=== PATIENT | female | born 1995 | race Caucasian/White ===

== ENCOUNTER 2020-11-26 19:04 | Inpatient (IN) | payer BC, OTHER ==
[2020-11-26] MEDS ORDERED: ONDANSETRON 4 MG/2 ML VIAL IVP STA (20:05)
--- NOTE | 2020-11-26 20:12 | ED ---
Alcohol HPI - General Chief Complaint: Alcohol Stated Complaint: ETOH withdrawals Time Seen by Provider: 11/26/20 19:50 Source: patient, RN notes reviewed Mode of arrival: ambulatory Limitations: no limitations - History of Present Illness Initial Comments: 25-year-old female history of alcoholism was bent and out of rehab multiple times who states she's been drinking heavily for the past 2 and half months trachea is much is 1-1/2 fifths of whiskey per day. She states her last drink was about 3 hours to 4 prior to arrival. She is nauseated vomiting having shakes feels lightheaded dizzy she tries to walk. No diarrhea no other complaints such as abdominal pain she denies any chance being . And no other medical issues at this time MD Complaint: alcohol intoxication, alcohol withdrawal - Related Data Allergies Allergy/AdvReac Type Severity Reaction Status Date / Time No Known Allergies Allergy Verified 11/26/20 19:15 Review of Systems ROS Statement: Those systems with pertinent positive or pertinent negative responses have been documented in the HPI. ROS Other: All systems not noted in ROS Statement are negative. Past Medical History Past Medical History: No Reported History History of Any Multi-Drug Resistant Organisms: None Reported Past Surgical History: No Surgical Hx Reported Past Psychological History: No Psychological Hx Reported Smoking Status: Current every day smoker Past Alcohol Use History: Abuse, Daily, Heavy Past Drug Use History: None Reported General Exam - General Exam Comments Initial Comments: This is a well-developed well-nourished awake alert oriented 3 female demonstrate some evidence of tremor additionally there is a smell of alcohol conjoiners on her breath Limitations: no limitations General appearance: alert, anxious Head exam: Present: atraumatic, normocephalic, normal inspection Eye exam: Present: normal appearance, PERRL, EOMI. Absent: scleral icterus, conjunctival injection, periorbital swelling ENT exam: Present: mucous membranes dry Neck exam: Present: normal inspection. Absent: tenderness, meningismus, lymphadenopathy Respiratory exam: Present: normal lung sounds bilaterally. Absent: respiratory distress, wheezes, rales, rhonchi, stridor Cardiovascular Exam: Present: regular rate, normal rhythm, normal heart sounds. Absent: systolic murmur, diastolic murmur, rubs, gallop, clicks GI/Abdominal exam: Present: soft, normal bowel sounds. Absent: distended, tenderness, guarding, rebound, rigid Extremities exam: Present: normal inspection, full ROM, normal capillary refill. Absent: tenderness, pedal edema, joint swelling, calf tenderness Back exam: Present: normal inspection Neurological exam: Present: alert, oriented X3, CN II-XII intact Psychiatric exam: Present: normal mood, anxious Skin exam: Present: warm, dry, intact, normal color. Absent: rash Course Vital Signs 11/26/20 19:16 Temperature 99.1 F Pulse Rate 98 Respiratory 18 Rate Blood Pressure 158/93 O2 Sat by Pulse 96 Oximetry Medical Decision Making - Medical Decision Making I did review the lab work patient does demonstrate clinical evidence of intoxication as well as evidence of early withdrawal. Patient be admitted I did discuss the case with Dr Carrol izquierdo - Lab Data Result diagrams: 11/26/20 20:07 11/26/20 20:07 Lab Results 11/26/20 11/26/20 Range/Units 20:07 20:07 WBC 6.1 (3.8-10.6) k/uL RBC 4.30 (3.80-5.40) m/uL Hgb 14.9 (11.4-16.0) gm/dL Hct 45.0 (34.0-46.0) % MCV 104.5 H (80.0-100.0) fL MCH 34.6 (25.0-35.0) pg MCHC 33.1 (31.0-37.0) g/dL RDW 12.9 (11.5-15.5) % Plt Count 175 (150-450) k/uL MPV 8.2 Neutrophils % 60 % Lymphocytes % 29 % Monocytes % 5 % Eosinophils % 2 % Basophils % 1 % Neutrophils # 3.7 (1.3-7.7) k/uL Lymphocytes # 1.8 (1.0-4.8) k/uL Monocytes # 0.3 (0-1.0) k/uL Eosinophils # 0.1 (0-0.7) k/uL Basophils # 0.1 (0-0.2) k/uL Macrocytosis Slight Sodium 143 (137-145) mmol/L Potassium 4.0 (3.5-5.1) mmol/L Chloride 106 (98-107) mmol/L Carbon Dioxide 20 L (22-30) mmol/L Anion Gap 17 mmol/L BUN 12 (7-17) mg/dL Creatinine 0.50 L (0.52-1.04) mg/dL Est GFR (CKD-EPI)AfAm >90 (>60 ml/min/1.73 sqM) Est GFR (CKD-EPI)NonAf >90 (>60 ml/min/1.73 sqM) Glucose 135 H (74-99) mg/dL Calcium 9.9 (8.4-10.2) mg/dL Magnesium 2.1 (1.6-2.3) mg/dL Total Bilirubin 1.1 (0.2-1.3) mg/dL AST 175 H (14-36) U/L ALT 125 H (4-34) U/L Alkaline Phosphatase 84 (38-126) U/L Creatine Kinase 78 (30-135) U/L Total Protein 8.5 H (6.3-8.2) g/dL Albumin 5.1 H (3.5-5.0) g/dL Lipase 127 (23-300) U/L Serum Alcohol 380 H* mg/dL Disposition Clinical Impression: Alcohol withdrawal syndrome, Alcoholic intoxication Disposition: ADMITTED IP TO THIS HOSP Condition: Fair Referrals: None,Stated [Primary Care Provider] - 1-2 days
[2020-11-26 20:16] LABS: Basophils # (A) 0.1 k/uL (0-0.2); Basophils % (A) 1 %; Eosinophils # (A) 0.1 k/uL (0-0.7); Eosinophils % (A) 2 %; HGB 14.9 gm/dL (11.4-16.0); Lymphocytes # (A) 1.8 k/uL (1.0-4.8); Lymphocytes % (A) 29 %; MCH 34.6 pg (25.0-35.0); MCHC 33.1 g/dL (31.0-37.0); MCV 104.5 fL (80.0-100.0); Macrocytosis Slight; Mean Platelet Volume 8.2; Monocytes # (A) 0.3 k/uL (0-1.0); Monocytes % (A) 5 %; Neutrophils # (A) 3.7 k/uL (1.3-7.7); Neutrophils % (A) 60 %; Platelet Count 175 k/uL (150-450); RDW 12.9 % (11.5-15.5); WBC 6.1 k/uL (3.8-10.6)
[2020-11-26 20:28] LABS: ALT 125 U/L (4-34); AST 175 U/L (14-36); African American GFR (CKD) >90 (>60 ml/min/1.73 sqM); Albumin 5.1 g/dL (3.5-5.0); Alkaline Phosphatase 84 U/L (38-126); Anion Gap 17 mmol/L; Blood Urea Nitrogen 12 mg/dL (7-17); Calcium 9.9 mg/dL (8.4-10.2); Carbon Dioxide 20 mmol/L (22-30); Chloride 106 mmol/L (98-107); Creatine Kinase 78 U/L (30-135); Glucose 135 mg/dL (74-99); Lipase 127 U/L (23-300); Magnesium 2.1 mg/dL (1.6-2.3); Non-African American GFR(CKD) >90 (>60 ml/min/1.73 sqM); Sodium 143 mmol/L (137-145); Total Bilirubin 1.1 mg/dL (0.2-1.3); Total Protein 8.5 g/dL (6.3-8.2)
[2020-11-26 20:39] LABS: Alcohol 380 mg/dL
[2020-11-26] MEDS ORDERED: NALOXONE 0.4 MG/ML 1 ML VIAL IV PRN (20:58)
[2020-11-26] MEDS ORDERED: THIAMINE 100 MG/ML 2 ML VIAL IM STA (21:00)
[2020-11-26] MEDS ORDERED: LORazepam 2 MG/ML INJ IV PRN ×2 (21:00)
[2020-11-26] MEDS: THIAMINE 100 MG TAB PO SCH (21:12)
[2020-11-26] MEDS: SODIUM CHLORIDE 0.9% 1,000 ML IV SCH (21:13)
[2020-11-26] MEDS: 1: THIAMINE 100 MG, FOLIC ACID 1 MG in 0.9% NACL WITH KCL 20 MEQ/L 1,000 ML 2: 0.9% NAC IVP SCH (21:41)
[2020-11-26] MEDS: LORazepam 2 MG/ML INJ IV PRN (21:47)
--- NOTE | 2020-11-27 00:29 | P.HPIM ---
History of Present Illness H&P Date: 11/26/20 Patient is a 35-year-old female with a PMH of alcohol abuse who presents to the emergency room with alcohol intoxication, wanting to undergo detox. The patient reports a history of alcohol withdrawal seizures when she previously tried to detox on her own at home roughly a year ago. Patient reports that she has been drinking heavily for the past 2 years, and has now increased to a fifth to a fifth and a half of vodka daily for the past few months. She reports drinking small amounts throughout the day while she is at work and then drinking very heavily every night. She denied any additional complaints however. She denied chest discomfort, shortness of breath, fever, chills, cough, nausea, vomiting, abdominal pain, diarrhea. Laboratory evaluation was reviewed and was remarkable for alcohol level of 380, currently RCC are positive, AST 175, ALT 125, and lipase 127. Review of systems: Pertinent positives and negatives as discussed in HPI, a complete review of systems was performed and all other systems are negative. Physical examination: General: non toxic, no distress, appears at stated age, normal weight Derm: no unusual rashes/lesions no unusual ecchymoses, warm, dry Head: atraumatic, normocephalic, symmetric Eyes: EOMI, no lid lag, anicteric sclera, pupils equal round reactive to light ENT: Nose and ears atraumatic, no thrush, no pharyngeal erythema Neck: No thyromegaly, no cervical lymphadenopathy, trachea midline, supple Mouth: no lip lesion, mucus membranes moist Cardiovascular: S1S2 reg, no murmur, positive posterior tibial pulse bilateral, no edema, capillary refill less than 2 seconds Lungs: CTA bilateral, no rhonchi, no rales , no accessory muscle use Abdominal: soft, nontender to palpation, no guarding, no appreciable organomegaly, normal bowel sounds Ext: no gross muscle atrophy, muscle strength 5 out of 5 in all 4 extremities grossly, no contractures, Neuro: CN II-XI grossly intact, light touch intact all 4 extremities, finger to nose within normal limits, no outstretched hand tremor Psych: Alert, oriented, appropriate affect Assessment/plan Alcohol intoxication, impending withdrawal -[facility] protocol -Thiamine, folate -IV fluids -Fall, aspiration, seizure precautions Macrocytosis -Obtain B12 and folate levels Abnormal LFTs -Likely secondary to alcohol abuse -Monitor for now COVID-19 PCR positive -Patient currently asymptomatic DVT prophylaxis -Heparin subcu The patient is admitted with an anticipated greater than 2 midnight stay for evaluation of EtOh withdrawal CODE STATUS: Full Code Discussed with: Patient Anticipated discharge date: 2-[address]: Home Past Medical History Past Medical History: No Reported History History of Any Multi-Drug Resistant Organisms: None Reported Past Surgical History: No Surgical Hx Reported Past Psychological History: No Psychological Hx Reported Smoking Status: Current every day smoker Past Alcohol Use History: Abuse, Daily, Heavy Past Drug Use History: None Reported - Past Family History Mother Family Medical History: Hyperlipidemia Medications and Allergies Home Medications Medication Instructions Recorded Confirmed Type No Known Home Medications 11/26/20 11/26/20 History Allergies Allergy/AdvReac Type Severity Reaction Status Date / Time No Known Allergies Allergy Verified 11/26/20 21:48 Physical Exam Vitals: Vital Signs Temp Pulse Resp BP Pulse Ox 11/26/20 22:58 76 18 127/87 95 11/26/20 21:00 67 18 159/99 95 11/26/20 19:16 99.1 F 98 18 158/93 96 Intake and Output 11/26/20 11/26/20 11/27/20 14:59 22:59 06:59 Other: Weight 63.503 kg Results CBC & Chem 7: 11/26/20 20:07 11/26/20 20:07 Labs: Abnormal Lab Results - Last 24 Hours (Table) 11/26/20 11/26/20 11/26/20 Range/Units 20:07 20:07 21:19 MCV 104.5 H (80.0-100.0) fL Carbon Dioxide 20 L (22-30) mmol/L Creatinine 0.50 L (0.52-1.04) mg/dL Glucose 135 H (74-99) mg/dL AST 175 H (14-36) U/L ALT 125 H (4-34) U/L Total Protein 8.5 H (6.3-8.2) g/dL Albumin 5.1 H (3.5-5.0) g/dL Serum Alcohol 380 H* mg/dL Coronavirus (PCR) Detected A (Not Detectd)
[2020-11-27] MEDS: LORazepam 2 MG/ML INJ IV PRN ×3 (01:46→16:25)
[2020-11-27] MEDS: THIAMINE 100 MG TAB PO SCH ×2 (09:14→17:11)
[2020-11-27] MEDS: FOLIC ACID 1 MG TAB PO SCH (09:14)
[2020-11-27] MEDS: HEPARIN SODIUM,PORCINE/PF 5,000 UNIT/0.5 ML SYRINGE SQ SCH ×3 (09:14→23:53)
[2020-11-27] MEDS: SODIUM CHLORIDE 0.9% 1,000 ML IV SCH (09:16)
[2020-11-27 13:16] LABS: African American GFR (CKD) 146.8 (60.0-200.0); Albumin 4.4 g/dL (3.8-4.9); Albumin/Globulin Ratio 1.83 (1.60-3.17); Anion Gap 15.8 mmol/L (4.00-12.00); BUN/Creat Ratio 20.17 Ratio (12.00-20.00); Blood Urea Nitrogen 12.1 mg/dL (9.0-27.0); Calcium 8.8 mg/dL (8.7-10.3); Carbon Dioxide 18.2 mmol/L (21.6-31.8); Globulin 2.4 g/dL (1.6-3.3); Non-African American GFR(CKD) 126.7 (60.0-200.0); Potassium 4.4 mmol/L (3.5-5.5); Total Bilirubin 1.4 mg/dL (0.30-1.20); Total Protein 6.8 g/dL (6.2-8.2)
--- NOTE | 2020-11-27 13:59 | P.PN ---
Subjective Patient is doing well today. No acute events overnight. Objective - Vital Signs Vital signs: Vital Signs Temp 98.0 F 11/27/20 07:00 Pulse 88 11/27/20 07:00 Resp 17 11/27/20 07:00 BP 144/66 11/27/20 07:00 Pulse Ox 95 11/27/20 07:00 Intake & Output 11/26/20 11/27/20 11/27/20 18:59 06:59 18:59 Weight 63.503 kg Other: # Voids 1 - Exam General: The patient is awake and alert, in no distress Eye: there is normal conjunctiva bilaterally. Neck: The neck is supple, there is no JVD. Cardiovascular: Normal S1-S2, no S3-S4, no murmurs. Respiratory: Lungs clear to auscultation bilaterally Gastrointestinal: Abdomen is soft, nontender Musculoskeletal: There is no pedal edema. Neurological:. Speech is normal. Skin: Skin is warm and dry - Labs CBC & Chem 7: 11/26/20 20:07 11/27/20 06:48 Labs: Abnormal Lab Results - Last 24 Hours (Table) 11/26/20 11/26/20 11/26/20 Range/Units 20:07 20:07 21:19 MCV 104.5 H (80.0-100.0) fL Carbon Dioxide 20 L (22-30) mmol/L Anion Gap (4.00-12.00) mmol/L Creatinine 0.50 L (0.52-1.04) mg/dL BUN/Creatinine Ratio (12.00-20.00) Ratio Glucose 135 H (74-99) mg/dL Total Bilirubin (0.30-1.20) mg/dL AST 175 H (14-36) U/L ALT 125 H (4-34) U/L Total Protein 8.5 H (6.3-8.2) g/dL Albumin 5.1 H (3.5-5.0) g/dL Serum Alcohol 380 H* mg/dL Coronavirus (PCR) Detected A (Not Detectd) 11/27/20 Range/Units 06:48 MCV (80.0-100.0) fL Carbon Dioxide 18.2 L (22-30) mmol/L Anion Gap 15.80 H (4.00-12.00) mmol/L Creatinine (0.52-1.04) mg/dL BUN/Creatinine Ratio 20.17 H (12.00-20.00) Ratio Glucose (74-99) mg/dL Total Bilirubin 1.40 H (0.30-1.20) mg/dL AST 126 H (14-36) U/L ALT 107 H (4-34) U/L Total Protein (6.3-8.2) g/dL Albumin (3.5-5.0) g/dL Serum Alcohol mg/dL Coronavirus (PCR) (Not Detectd) Assessment and Plan Assessment: Patient is a 35-year-old female with a PMH of alcohol abuse who presents to the emergency room with alcohol intoxication, wanting to undergo detox. The patient reports a history of alcohol withdrawal seizures when she previously tried to detox on her own at home roughly a year ago. Patient reports that she has been drinking heavily for the past 2 years, and has now increased to a fifth to a fifth and a half of vodka daily for the past few months. She reports drinking small amounts throughout the day while she is at work and then drinking very heavily every night. She denied any additional complaints however. She denied chest discomfort, shortness of breath, fever, chills, cough, nausea, vomiting, abdominal pain, diarrhea. Laboratory evaluation was reviewed and was remarkable for alcohol level of 380, currently RCC are positive, AST 175, ALT 125, and lipase 127. Psych: Alert, oriented, appropriate affect Assessment/plan Alcohol intoxication, impending withdrawal -[facility] protocol -Thiamine, folate -IV fluids -Fall, aspiration, seizure precautions Macrocytosis -Obtain B12 and folate levels Abnormal LFTs -Likely secondary to alcohol abuse -Monitor for now COVID-19 PCR positive -Patient currently asymptomatic DVT prophylaxis -Heparin subcu The patient is admitted with an anticipated greater than 2 midnight stay for evaluation of EtOh withdrawal CODE STATUS: Full Code Discussed with: Patient Anticipated discharge date: 2-[address]: Home
[2020-11-27] MEDS: 1: THIAMINE 100 MG, FOLIC ACID 1 MG in 0.9% NACL WITH KCL 20 MEQ/L 1,000 ML 2: 0.9% NAC IVP SCH ×2 (15:46→17:58)
[2020-11-27] MEDS: NICOTINE 21MG/24HR PATCH TRANSDERM SCH (17:11)
[2020-11-28] MEDS ORDERED: ACETAMINOPHEN TAB 325 MG TAB PO PRN (03:22)
[2020-11-28] MEDS: LORazepam 2 MG/ML INJ IV PRN ×2 (03:35→21:52)
[2020-11-28] MEDS: 1: THIAMINE 100 MG, FOLIC ACID 1 MG in 0.9% NACL WITH KCL 20 MEQ/L 1,000 ML 2: 0.9% NAC IVP SCH ×3 (04:35→17:19)
[2020-11-28] MEDS ORDERED: amLODIPine 5 MG TAB PO SCH (09:00)
[2020-11-28] MEDS: NICOTINE 21MG/24HR PATCH TRANSDERM SCH (10:04)
[2020-11-28] MEDS: THIAMINE 100 MG TAB PO SCH ×2 (10:04→17:20)
[2020-11-28] MEDS: HEPARIN SODIUM,PORCINE/PF 5,000 UNIT/0.5 ML SYRINGE SQ SCH ×2 (10:04→17:20)
[2020-11-28] MEDS: FOLIC ACID 1 MG TAB PO SCH (10:06)
[2020-11-28] MEDS ORDERED: hydrALAZINE HCL 20 MG/ML 1 ML VIAL IVP STA (10:54)
--- NOTE | 2020-11-28 10:55 | P.PN ---
Subjective Patient is feeling fairly well today. Her blood pressure is very elevated this morning. Patient told me that she has a history of hypertension that has not been taking any medications Objective - Vital Signs Vital signs: Vital Signs Temp 98.7 F 11/28/20 10:15 Pulse 94 11/28/20 10:15 Resp 16 11/28/20 10:15 BP 190/124 11/28/20 10:15 Pulse Ox 99 11/28/20 10:15 Intake & Output 11/27/20 11/28/20 11/28/20 18:59 06:59 18:59 Intake Total 1200 Balance 1200 Intake: Intake, IV Titration 1200 Amount Sodium Chloride 0.9% 1, 1200 000 ml @ 75 mls/hr IV . [id number] ALICIA Rx#:[id number] Other: # Voids 3 3 - Exam General: The patient is awake and alert, in no distress Eye: there is normal conjunctiva bilaterally. Neck: The neck is supple, there is no JVD. Cardiovascular: Normal S1-S2, no S3-S4, no murmurs. Respiratory: Lungs clear to auscultation bilaterally Gastrointestinal: Abdomen is soft, nontender Musculoskeletal: There is no pedal edema. Neurological:. Speech is normal. Skin: Skin is warm and dry - Labs CBC & Chem 7: 11/26/20 20:07 11/27/20 06:48 Labs: Abnormal Lab Results - Last 24 Hours (Table) 11/27/20 Range/Units 06:48 Carbon Dioxide 18.2 L (21.6-31.8) mmol/L Anion Gap 15.80 H (4.00-12.00) mmol/L BUN/Creatinine Ratio 20.17 H (12.00-20.00) Ratio Total Bilirubin 1.40 H (0.30-1.20) mg/dL AST 126 H (13-35) U/L ALT 107 H (8-44) U/L Assessment and Plan Assessment: Patient is a 35-year-old female with a PMH of alcohol abuse who presents to the emergency room with alcohol intoxication, wanting to undergo detox. The patient reports a history of alcohol withdrawal seizures when she previously tried to detox on her own at home roughly a year ago. Patient reports that she has been drinking heavily for the past 2 years, and has now increased to a fifth to a fifth and a half of vodka daily for the past few months. She reports drinking small amounts throughout the day while she is at work and then drinking very heavily every night. She denied any additional complaints however. She denied chest discomfort, shortness of breath, fever, chills, cough, nausea, vomiting, abdominal pain, diarrhea. Laboratory evaluation was reviewed and was remarkable for alcohol level of 380, currently RCC are positive, AST 175, ALT 125, and lipase 127. Psych: Alert, oriented, appropriate affect Assessment/plan Alcohol intoxication, impending withdrawal -[facility] protocol -Thiamine, folate -IV fluids -Fall, aspiration, seizure precautions Hypertensive urgency This likely secondary to withdrawal as patient is not having any symptoms of withdrawal and got Ativan earlier with minimal improvement in her blood pressure I would give her 1 time dose of IV hydralazine 10 mg and start Norvasc 5 mg daily Continue to monitor blood pressure closely Macrocytosis -Obtain B12 and folate levels Abnormal LFTs -Likely secondary to alcohol abuse -Monitor for now COVID-19 PCR positive -Patient currently asymptomatic DVT prophylaxis -Heparin subcu The patient is admitted with an anticipated greater than 2 midnight stay for evaluation of EtOh withdrawal CODE STATUS: Full Code Discussed with: Patient Anticipated discharge date: 2-[address]: Home
[2020-11-28] MEDS ORDERED: cloNIDine HCL 0.1 MG TAB PO STA (13:43)
[2020-11-29] MEDS: HEPARIN SODIUM,PORCINE/PF 5,000 UNIT/0.5 ML SYRINGE SQ SCH ×2 (00:23→08:29)
[2020-11-29] MEDS: 1: THIAMINE 100 MG, FOLIC ACID 1 MG in 0.9% NACL WITH KCL 20 MEQ/L 1,000 ML 2: 0.9% NAC IVP SCH ×2 (03:32→11:16)
[2020-11-29] MEDS: THIAMINE 100 MG TAB PO SCH (08:29)
[2020-11-29] MEDS: FOLIC ACID 1 MG TAB PO SCH (08:29)
[2020-11-29] MEDS: NICOTINE 21MG/24HR PATCH TRANSDERM SCH (08:32)
[2020-11-29] MEDS ORDERED: amLODIPine 10 MG TAB PO SCH (09:00)
--- NOTE | 2020-11-29 09:34 | P.DS ---
Providers Date of admission: 11/26/20 20:58 Expected date of discharge: 11/29/20 Attending physician: Pat Branham MD Primary care physician: Stated None Hospital Course: This is a 25-year-old female with past medical history significant for alcohol abuse and history of hypertension not taking any medication prior to arrival to the ER that presented with alcohol intoxication. Patient was admitted to the hospital and was treated with aggressive IV fluid hydration and Ativan as needed per [facility] protocol. Patient's overall condition remained stable throughout her hospital stay. She did not have evidence of severe withdrawal. Her blood pressure was noted to be elevated and she was started on Norvasc and the dose adjusted to 10 mg daily. Patient was counseled extensively regarding alcohol cessation and regarding compliance with her medications. She was advised to continue to monitor her blood pressure at home and follow up with PCP as directed by the end of the week. She'll be discharged home in a stable condition. She was also given a prescription for nicotine patch and counseled extensively regarding tobacco cessation. General: The patient is awake and alert, in no distress Eye: there is normal conjunctiva bilaterally. Neck: The neck is supple, there is no JVD. Cardiovascular: Normal S1-S2, no S3-S4, no murmurs. Respiratory: Lungs clear to auscultation bilaterally Gastrointestinal: Abdomen is soft, nontender Musculoskeletal: There is no pedal edema. Neurological:. Speech is normal. Skin: Skin is warm and dry Patient Condition at Discharge: Fair Plan - Discharge Summary Discharge Rx Participant: No New Discharge Prescriptions: New Folic Acid 1 mg PO DAILY #30 tab Nicotine 21Mg/24Hr Patch [Habitrol] 1 patch TRANSDERM DAILY #30 patch amLODIPine [Norvasc] 10 mg PO DAILY #30 tab Thiamine [Vitamin B-1] 100 mg PO BID-W/MEALS #14 tab Discharge Medication List Folic Acid 1 mg PO DAILY #30 tab 11/29/20 [Rx] Nicotine 21Mg/24Hr Patch [Habitrol] 1 patch TRANSDERM DAILY #30 patch 11/29/20 [Rx] Thiamine [Vitamin B-1] 100 mg PO BID-W/MEALS #14 tab 11/29/20 [Rx] amLODIPine [Norvasc] 10 mg PO DAILY #30 tab 11/29/20 [Rx] Follow up Appointment(s)/Referral(s): None,Stated [Primary Care Provider] - 1-2 days Discharge Disposition: HOME SELF-CARE
[2020-11-29 09:47] VITALS: PULSE 83
[2020-11-29] MEDS ORDERED: hydrALAZINE HCL 20 MG/ML 1 ML VIAL IVP STA (09:50)
[2020-11-29 10:11] VITALS: RESP 17; TEMP 98.2
[2020-11-29 11:07] VITALS: BP 179/80
== END 2020-11-29 11:41 | disposition home or self-care (01) | DRG 896 ==
LOC: EC 19:04 → 4SSUR 20:58
PROVIDERS: ADMIT Internal Medicine; ATTEND Internal Medicine
DX: F10.239 Alcohol dependence with withdrawal, unspecified (principal); U07.1 COVID-19; F10.229 Alcohol dependence with intoxication, unspecified; Y90.8 Blood alcohol level of 240 mg/100 ml or more; D75.89 Other specified diseases of blood and blood-forming organs; R79.89 Other specified abnormal findings of blood chemistry; Z71.41 Alcohol abuse counseling and surveillance of alcoholic; F17.200 Nicotine dependence, unspecified, uncomplicated; I10 Essential (primary) hypertension; I16.0 Hypertensive urgency
CPT/HCPCS: 36415; 80053; 80320; 82550; 82607; 82747; 83690; 83735; 85025; 87635; 96372; 96374; 96375; 99285

== ENCOUNTER 2020-11-30 22:02 | Emergency (ER) | payer OTHER ==
[2020-11-30 22:24] VITALS: TEMP 98.8
[2020-11-30] MEDS ORDERED: LORazepam 2 MG/ML INJ IV STA (22:57)
[2020-11-30 23:14] LABS: Basophils # (A) 0.1 k/uL (0-0.2); Basophils % (A) 1 %; Eosinophils # (A) 0.2 k/uL (0-0.7); Eosinophils % (A) 2 %; HCT 40.8 % (34.0-46.0); Lymphocytes # (A) 1.9 k/uL (1.0-4.8); Lymphocytes % (A) 24 %; MCH 35.6 pg (25.0-35.0); MCHC 34.4 g/dL (31.0-37.0); MCV 103.5 fL (80.0-100.0); Macrocytosis Slight; Mean Platelet Volume 9.8; Monocytes # (A) 0.5 k/uL (0-1.0); Monocytes % (A) 7 %; Neutrophils # (A) 4.9 k/uL (1.3-7.7); Neutrophils % (A) 63 %; Platelet Count 150 k/uL (150-450); RBC 3.94 m/uL (3.80-5.40); RDW 12.2 % (11.5-15.5); WBC 7.7 k/uL (3.8-10.6)
[2020-11-30 23:31] LABS: ALT 74 U/L (4-34); AST 66 U/L (14-36); African American GFR (CKD) >90 (>60 ml/min/1.73 sqM); Alkaline Phosphatase 72 U/L (38-126); Anion Gap 12 mmol/L; Blood Urea Nitrogen 9 mg/dL (7-17); Calcium 10.9 mg/dL (8.4-10.2); Carbon Dioxide 23 mmol/L (22-30); Chloride 103 mmol/L (98-107); Glucose 102 mg/dL (74-99); Magnesium 1.8 mg/dL (1.6-2.3); Non-African American GFR(CKD) >90 (>60 ml/min/1.73 sqM); Potassium 4.1 mmol/L (3.5-5.1); Sodium 138 mmol/L (137-145); Total Bilirubin 1.3 mg/dL (0.2-1.3); Total Protein 8.2 g/dL (6.3-8.2)
--- NOTE | 2020-11-30 23:33 | ED ---
General Adult HPI - General Chief complaint: Recheck/Abnormal Lab/Rx Stated complaint: High BP Time Seen by Provider: 11/30/20 22:32 Source: patient Mode of arrival: ambulatory Limitations: no limitations - History of Present Illness Initial comments: This patient is 25-year-old woman who presents with complaint of mild generalized headache and that her blood pressure is elevated. The patient did note that she had recently stopped alcohol. Patient denies fever or chills. No strokelike symptoms or sensory changes. No difficulty with speech or swa llowing. No neck pain or stiffness. -: days(s) Location: head Radiation: non-radiation Quality: aching Consistency: constant Improves with: none Worsens with: none Associated Symptoms: headaches, nausea/vomiting Treatments Prior to Arrival: none - Related Data Previous Rx's Medication Instructions Recorded Folic Acid 1 mg PO DAILY #30 tab 11/29/20 amLODIPine [Norvasc] 10 mg PO DAILY #30 tab 11/29/20 LORazepam [Ativan] 1 mg PO TID 3 Days #9 tab 11/30/20 Allergies Allergy/AdvReac Type Severity Reaction Status Date / Time No Known Allergies Allergy Verified 11/30/20 22:23 Review of Systems ROS Statement: Those systems with pertinent positive or pertinent negative responses have been documented in the HPI. ROS Other: All systems not noted in ROS Statement are negative. Constitutional: Denies: fever, chills, weakness Eyes: Denies: vision change ENT: Denies: ear pain Respiratory: Denies: cough, dyspnea Cardiovascular: Denies: chest pain, palpitations, edema, syncope Gastrointestinal: Reports: nausea. Denies: abdominal pain, vomiting, diarrhea Genitourinary: Denies: dysuria, hematuria Musculoskeletal: Denies: back pain Skin: Denies: rash Neurological: Reports: headache. Denies: weakness, numbness, confusion Psychiatric: Reports: anxiety Past Medical History Past Medical History: No Reported History, Seizure Disorder Additional Past Medical History / Comment(s): PT has hx of seizures when detoxing from ETOH History of Any Multi-Drug Resistant Organisms: None Reported Past Surgical History: No Surgical Hx Reported Additional Past Surgical History / Comment(s): Had nerve cyst removed from wrist when young. Past Psychological History: No Psychological Hx Reported Smoking Status: Current every day smoker Past Alcohol Use History: Abuse, Daily, Heavy Past Drug Use History: Marijuana - Past Family History Mother Family Medical History: Hyperlipidemia General Exam Limitations: no limitations General appearance: alert, in no apparent distress Head exam: Present: atraumatic, normocephalic Eye exam: Present: normal appearance, PERRL, EOMI. Absent: scleral icterus, conjunctival injection, nystagmus ENT exam: Present: normal oropharynx, TM's normal bilaterally Neck exam: Present: normal inspection, full ROM. Absent: tenderness, meningismus Respiratory exam: Present: normal lung sounds bilaterally. Absent: respiratory distress, wheezes, rales, rhonchi, stridor Cardiovascular Exam: Present: regular rate, normal rhythm, normal heart sounds. Absent: systolic murmur, diastolic murmur, rubs, gallop GI/Abdominal exam: Present: soft. Absent: tenderness, organomegaly, mass, pulsatile mass Extremities exam: Present: normal inspection. Absent: normal capillary refill, pedal edema Neurological exam: Present: alert, oriented X3, CN II-XII intact. Absent: motor sensory deficit Skin exam: Present: warm, dry, intact, normal color. Absent: rash Course Vital Signs 11/30/20 11/30/20 11/30/20 22:20 23:06 23:51 Temperature 98.8 F Pulse Rate 87 78 Respiratory 19 20 Rate Blood Pressure 194/100 177/104 146/103 O2 Sat by Pulse 98 97 Oximetry 12/01/20 00:13 Temperature Pulse Rate 89 Respiratory 20 Rate Blood Pressure 151/94 O2 Sat by Pulse 96 Oximetry EKG Findings - EKG Results: EKG: interpreted by ERMD, sinus rhythm (Rate 70 bpm), normal axis, normal QRS, normal ST/T, no acute changes Medical Decision Making - Medical Decision Making Patient is 25-year-old woman with headache and hypertension given the recent alcohol cessation patient given brief course of Ativan. Discussed appropriate further care and follow-up, and further encouraged to continue cessation. - Lab Data Result diagrams: 11/30/20 23:05 11/30/20 23:05 Lab Results 11/30/20 11/30/20 Range/Units 23:05 23:05 WBC 7.7 (3.8-10.6) k/uL RBC 3.94 (3.80-5.40) m/uL Hgb 14.0 (11.4-16.0) gm/dL Hct 40.8 (34.0-46.0) % MCV 103.5 H (80.0-100.0) fL MCH 35.6 H (25.0-35.0) pg MCHC 34.4 (31.0-37.0) g/dL RDW 12.2 (11.5-15.5) % Plt Count 150 (150-450) k/uL MPV 9.8 Neutrophils % 63 % Lymphocytes % 24 % Monocytes % 7 % Eosinophils % 2 % Basophils % 1 % Neutrophils # 4.9 (1.3-7.7) k/uL Lymphocytes # 1.9 (1.0-4.8) k/uL Monocytes # 0.5 (0-1.0) k/uL Eosinophils # 0.2 (0-0.7) k/uL Basophils # 0.1 (0-0.2) k/uL Macrocytosis Slight Sodium 138 (137-145) mmol/L Potassium 4.1 (3.5-5.1) mmol/L Chloride 103 (98-107) mmol/L Carbon Dioxide 23 (22-30) mmol/L Anion Gap 12 mmol/L BUN 9 (7-17) mg/dL Creatinine 0.47 L (0.52-1.04) mg/dL Est GFR (CKD-EPI)AfAm >90 (>60 ml/min/1.73 sqM) Est GFR (CKD-EPI)NonAf >90 (>60 ml/min/1.73 sqM) Glucose 102 H (74-99) mg/dL Calcium 10.9 H (8.4-10.2) mg/dL Magnesium 1.8 (1.6-2.3) mg/dL Total Bilirubin 1.3 (0.2-1.3) mg/dL AST 66 H (14-36) U/L ALT 74 H (4-34) U/L Alkaline Phosphatase 72 (38-126) U/L Total Protein 8.2 (6.3-8.2) g/dL Albumin 5.0 (3.5-5.0) g/dL Disposition Clinical Impression: Hypertension Disposition: HOME SELF-CARE Condition: Good Instructions (If sedation given, give patient instructions): Hypertension (ED) Prescriptions: LORazepam [Ativan] 1 mg PO TID 3 Days #9 tab Is patient prescribed a controlled substance at d/c from ED?: No Referrals: Shannon Damon MD [Primary Care Provider] - 1-2 days
[2020-11-30 23:51] VITALS: RESP 20
[2020-12-01 00:14] VITALS: BP 151/94; PULSE 89
== END 2020-12-01 00:15 | disposition home or self-care (01) ==
LOC: EC 22:02
DX: I10 Essential (primary) hypertension (principal); F17.200 Nicotine dependence, unspecified, uncomplicated; R11.2 Nausea with vomiting, unspecified
CPT/HCPCS: 36415; 93005; 80053; 83735; 85025; 99284; 96374; J2060

== ENCOUNTER → 2021-01-20 | Outpatient (CLI) | payer OTHER | END | disposition home or self-care (01) | LOC: RADUSWWP 16:14 | PROVIDERS: ATTEND Family Medicine | DX: Z53.9 Procedure and treatment not carried out, unspecified reason (principal) ==

== ENCOUNTER → 2021-02-15 | Outpatient (CLI) | payer OTHER ==
--- NOTE | 2021-02-15 10:08 | US ---
EXAMINATION TYPE: US renal artery duplex complete DATE OF EXAM: 02/15/2021 COMPARISON: NONE CLINICAL HISTORY: 25-year-old female I10 HTN, RENAL ARTERY STENOSIS. TECHNIQUE: Multiple sonographic images of the kidneys were obtained. Color Doppler and spectral wavef orm analysis of the abdominal aorta and renal artery vasculature. FINDINGS: MEASUREMENTS: RENAL SIZE: Rt Kidney: 11.6 x 3.0 x 5.1cm Lt Kidney: 11.8 x 4.4 x 5.4cm No hydronephrosis on either side. Aortic velocity: 101.2 cm/s. There is blunted upstroke and biphasic waveform. RESISTANCE INDEX Right: 0.51 (borderline) Left: 0.27 (diminished) RA/AO RATIO (< 3.5 ) Right: 1.3 Left: 1.4 RA VELOCITY ( < 180 cm/s) Right: 131 Left: 138 Bilateral parvus tardus waveforms with significant elongation and acceleration time. [employer] notes: Tardus parvus, multiphasic waveforms in aorta, renal artery, segmental arteries an d arcuate arteries. Abnormal upstroke in arcuate arteries. IMPRESSION: 1. Bilateral renal parvus tardus waveforms. The abdominal aorta also shows a blunted upstroke and bip hasic waveform. Differential considerations include an upstream significant stenosis such as aortic v alve stenosis or aortic coarctation. Recommend further specialist consultation and evaluation. 2. Renal artery to aortic ratios do not indicate renal artery stenosis.
== END | disposition home or self-care (01) ==
LOC: RADUSWWP 07:01
PROVIDERS: ATTEND Family Medicine
DX: I10 Essential (primary) hypertension (principal)
CPT/HCPCS: 93975

== ENCOUNTER 2021-08-21 00:44 | Inpatient (IN) | payer OTHER ==
[2021-08-21] MEDS ORDERED: SODIUM CHLORIDE 0.9% 1,000 ML IV STA ×2 (02:18)
--- NOTE | 2021-08-21 03:17 | ED ---
Alcohol HPI - General Chief Complaint: Nausea/Vomiting/Diarrhea Stated Complaint: Alcohol Detox Time Seen by Provider: 08/21/21 02:06 Source: patient, family Mode of arrival: ambulatory Limitations: no limitations - Related Data Previous Rx's Medication Instructions Recorded Folic Acid 1 mg PO DAILY #30 tab 11/29/20 amLODIPine [Norvasc] 10 mg PO DAILY #30 tab 11/29/20 LORazepam [Ativan] 1 mg PO TID 3 Days #9 tab 11/30/20 Allergies Allergy/AdvReac Type Severity Reaction Status Date / Time No Known Allergies Allergy Verified 08/21/21 01:35 Review of Systems ROS Statement: Those systems with pertinent positive or pertinent negative responses have been documented in the HPI. ROS Other: All systems not noted in ROS Statement are negative. Past Medical History Past Medical History: No Reported History, Seizure Disorder Additional Past Medical History / Comment(s): PT has hx of seizures when detoxing from ETOH History of Any Multi-Drug Resistant Organisms: None Reported Past Surgical History: No Surgical Hx Reported Additional Past Surgical History / Comment(s): Had nerve cyst removed from wrist when young. Past Psychological History: Anxiety Smoking Status: Current every day smoker Past Alcohol Use History: Abuse, Daily, Heavy Past Drug Use History: Marijuana - Past Family History Mother Family Medical History: Hyperlipidemia General Exam Limitations: no limitations Course Vital Signs 08/21/21 01:31 Temperature 98.2 F Pulse Rate 67 Respiratory 20 Rate Blood Pressure 161/95 O2 Sat by Pulse 97 Oximetry Medical Decision Making - Lab Data Result diagrams: 08/21/21 03:00 Lab Results 08/21/21 Range/Units 03:00 WBC 10.6 (3.8-10.6) k/uL RBC 4.27 (3.80-5.40) m/uL Hgb 13.6 (11.4-16.0) gm/dL Hct 40.6 (34.0-46.0) % MCV 95.0 (80.0-100.0) fL MCH 31.8 (25.0-35.0) pg MCHC 33.5 (31.0-37.0) g/dL RDW 12.8 (11.5-15.5) % Plt Count 180 (150-450) k/uL MPV 8.3 Neutrophils % 61 % Lymphocytes % 29 % Monocytes % 5 % Eosinophils % 2 % Basophils % 1 % Neutrophils # 6.5 (1.3-7.7) k/uL Lymphocytes # 3.1 (1.0-4.8) k/uL Monocytes # 0.6 (0-1.0) k/uL Eosinophils # 0.3 (0-0.7) k/uL Basophils # 0.1 (0-0.2) k/uL Disposition Clinical Impression: Alcohol withdrawal syndrome, Alcoholic intoxication, Dehydration, Nausea & vomiting, Anxiety, History of seizure due to alcohol withdrawal Disposition: ADMITTED IP TO THIS HOSP Condition: Fair Instructions (If sedation given, give patient instructions): Acute Nausea and Vomiting in Children (ED) Is patient prescribed a controlled substance at d/c from ED?: No Referrals: Shannon Damon MD [Primary Care Provider] - 1-2 days
[2021-08-21 03:30] LABS: Basophils # (A) 0.1 k/uL (0-0.2); Basophils % (A) 1 %; Eosinophils # (A) 0.3 k/uL (0-0.7); Eosinophils % (A) 2 %; HCT 40.6 % (34.0-46.0); HGB 13.6 gm/dL (11.4-16.0); Lymphocytes # (A) 3.1 k/uL (1.0-4.8); Lymphocytes % (A) 29 %; MCH 31.8 pg (25.0-35.0); MCHC 33.5 g/dL (31.0-37.0); Mean Platelet Volume 8.3; Monocytes # (A) 0.6 k/uL (0-1.0); Monocytes % (A) 5 %; Neutrophils # (A) 6.5 k/uL (1.3-7.7); Neutrophils % (A) 61 %; Platelet Count 180 k/uL (150-450); RBC 4.27 m/uL (3.80-5.40); RDW 12.8 % (11.5-15.5); WBC 10.6 k/uL (3.8-10.6)
[2021-08-21] MEDS ORDERED: ONDANSETRON 4 MG/2 ML VIAL IVP PRN (03:41)
[2021-08-21] MEDS ORDERED: ONDANSETRON 4 MG/2 ML VIAL IVP STA (03:42)
[2021-08-21] MEDS ORDERED: diazePAM 5 MG/ML 1 ML VIAL IVP STA (03:42)
[2021-08-21 03:51] LABS: ALT 14 U/L (4-34); AST 23 U/L (14-36); African American GFR (CKD) >90 (>60 ml/min/1.73 sqM); Albumin 4.5 g/dL (3.5-5.0); Alkaline Phosphatase 66 U/L (38-126); Anion Gap 11 mmol/L; Blood Urea Nitrogen 12 mg/dL (7-17); Calcium 9.4 mg/dL (8.4-10.2); Carbon Dioxide 23 mmol/L (22-30); Chloride 109 mmol/L (98-107); Glucose 85 mg/dL (74-99); Lipase 58 U/L (23-300); Non-African American GFR(CKD) >90 (>60 ml/min/1.73 sqM); Phosphorus 4.3 mg/dL (2.5-4.5); Potassium 4.4 mmol/L (3.5-5.1); Sodium 143 mmol/L (137-145); Total Bilirubin 1.4 mg/dL (0.2-1.3); Total Protein 7.2 g/dL (6.3-8.2)
[2021-08-21] MEDS ORDERED: THIAMINE 100 MG/ML 2 ML VIAL IM STA (04:00)
[2021-08-21] MEDS ORDERED: NALOXONE 0.4 MG/ML 1 ML VIAL IV PRN (04:00)
[2021-08-21] MEDS ORDERED: PROCHLORPERAZINE 5 MG TAB PO PRN (04:00)
[2021-08-21] MEDS ORDERED: LORazepam 2 MG/ML INJ IV PRN ×4 (04:00)
[2021-08-21 04:20] LABS: Alcohol 167 mg/dL
[2021-08-21] MEDS: DEXTROSE 5%-0.45% NACL 1,000 ML IV SCH ×2 (04:32→21:26)
[2021-08-21] MEDS ORDERED: chlordiazePOXIDE 25 MG CAP PO PRN ×3 (06:19)
[2021-08-21] MEDS: MULTIVITAMINS, THERA 1 EACH TAB PO SCH (07:34)
[2021-08-21] MEDS: chlordiazePOXIDE 25 MG CAP PO PRN ×2 (07:34→11:37)
[2021-08-21] MEDS ORDERED: LORazepam 1 MG/0.5 ML VIAL IV PRN (11:54)
[2021-08-21 12:21] LABS: Appearance,Urine Cloudy (Clear); Bilirubin,Urine Negative (Negative); Blood,Urine Negative (Negative); Color,Urine Yellow; Glucose,Urine (UA) Negative (Negative); Ketones,Urine Negative (Negative); Leukocyte Esterase,Urine Trace (Negative); Mucus,Urine Few /hpf; Nitrite,Urine Negative (Negative); PH, Urine 5.5 (5.0-8.0); Protein,Urine 1+ (Negative); RBC,Urine 1 /hpf (0-5); Specific Gravity,Urine 1.023 (1.001-1.035); Squamous Epithelial Cell,Urine 3 /hpf (0-4); Urobilinogen,Urine <2.0 mg/dL (<2.0); WBC,Urine 4 /hpf (0-5)
[2021-08-21 12:29] LABS: Amphetamine Screen,Urine Not Detected (NotDetected); Barbiturate Screen,Urine Not Detected (NotDetected); Benzodiazepines Screen,Urine Detected (NotDetected); Cocaine Screen,Urine Not Detected (NotDetected); Methadone Screen, Urine Not Detected (NotDetected); Opiate Screen,Urine Not Detected (NotDetected); Oxycodone Screen, Urine Not Detected (NotDetected); Phencyclidine Screen,Urine Not Detected (NotDetected); Tricyclic Antidepressant,Urine Not Detected (NotDetected); Urn Cannabinoid Scrn Detected (NotDetected)
[2021-08-21] MEDS: THIAMINE 100 MG TAB PO SCH (16:16)
--- NOTE | 2021-08-22 00:40 | P.HPIM ---
History of Present Illness H&P Date: 08/21/21 Chief Complaint: Alcohol intoxication Patient is a 26-year-old female with a known history of seizure disorder when detoxing from EtOH, daily heavy alcohol use and ongoing nicotine addiction, anxiety and marijuana use presents to ER with generalized shakiness and acute alcohol intoxication with alcohol level 167 on admission. Patient states that she is trying to detox herself at home but felt very anxious and shaky and came to ER. No complaints of fever or chills. No nausea or vomiting or abdominal pain or diarrhea. On admission blood pressure is elevated at 161/95 and pulse ox 90% on room air. Laboratory test showed WC 10.6 hemoglobin 13.6 and platelets 180 Sodium 143 potassium 4.4 chloride 109 bicarb is 23 BUN 12 and creatinine 0.62 and blood sugar is 85 UDS is positive for benzodiazepines and marijuana. Serum alcohol level is 167 Review of Systems Constitutional: Patient denies any fever or chills . Generalized weakness. G eneralized shakiness and tremors. Abdomen: Patient denied any nausea or vomiting or abd. pain Cardiovascular: Patient denies any chest pain or short of breath no palpitations. Respiratory: patient denied any cough is from production. No shortness of breath Neurologic: Patient denied any numbness or tingling headache. Musculoskeletal: Patient denies any complaints of joint swelling or deformity. Skin: Negative Psychiatric: Negative Endocrine: No heat or cold intolerance. No recent weight gain. Genitourinary: No dysuria or hematuria. All other 14 point ROS negative except the above Past Medical History Past Medical History: No Reported History, Seizure Disorder Additional Past Medical History / Comment(s): PT has hx of seizures when detoxing from ETOH History of Any Multi-Drug Resistant Organisms: None Reported Past Surgical History: No Surgical Hx Reported Additional Past Surgical History / Comment(s): Had nerve cyst removed from wrist when young. Past Psychological History: Anxiety Smoking Status: Current every day smoker Past Alcohol Use History: Abuse, Daily, Heavy Past Drug Use History: Marijuana - Past Family History Mother Family Medical History: Hyperlipidemia Medications and Allergies Home Medications Medication Instructions Recorded Confirmed Type No Known Home Medications 08/21/21 08/21/21 History Allergies Allergy/AdvReac Type Severity Reaction Status Date / Time No Known Allergies Allergy Verified 08/21/21 12:53 Physical Exam Vitals: Vital Signs Temp Pulse Pulse Resp BP BP Pulse Ox 08/21/21 07:50 55 L 19 08/21/21 07:22 98.3 F 55 L 19 146/89 97 08/21/21 07:03 97.9 F 62 16 126/72 97 08/21/21 01:31 98.2 F 67 20 161/95 97 Intake and Output 08/20/21 08/21/21 08/21/21 22:59 06:59 14:59 Other: Weight 53.796 kg PHYSICAL EXAMINATION: Patient is lying in the bed comfortably, no acute distress, awake alert and oriented.. HEENT: Normocephalic. Neck is supple. Pupils reactive. Nostrils clear. Oral cavity is moist. Neck reveals no JVD, carotid bruits, or thyromegaly. CHEST EXAMINATION: Trachea is central. Symmetrical expansion. Lung weinstein clear to auscultation and percussion. CARDIAC: Normal S1, S2 with no gallops. No murmurs ABDOMEN: Soft. Bowel sounds present. Nontender. No organomegaly. No abdominal bruits. Extremities: reveal no edema. No clubbing or cyanosis Neurologically awake, alert, oriented x3 with well-coordinated movements. No focal deficits noted Skin: No rash or skin lesions. Psychiatric: Coperative. Nonsuicidal, anxious. Musculoskeletal: No joint swelling or deformity. Normal range of motion. Results CBC & Chem 7: 08/21/21 03:00 08/21/21 03:00 Labs: Abnormal Lab Results - Last 24 Hours (Table) 08/21/21 Range/Units 03:00 Chloride 109 H (98-107) mmol/L Total Bilirubin 1.4 H (0.2-1.3) mg/dL Thrombosis Risk Factor Assmnt - DVT/VTE Prophylaxis DVT/VTE Prophylaxis: Pharmacologic Prophylaxis ordered - Choose All That Apply Any of the Below Risk Factors Present?: No Assessment and Plan Assessment: Acute EtOH intoxication Alcohol withdrawal symptoms UDS positive for marijuana and benzodiazepines Anxiety Currently everyday smoker Daily heavy alcohol abuse DVT prophylaxis with heparin subcu Plan: Patient will be continued on IV hydration and continue with alcohol withdrawal protocol. Continue thiamine and multivitamins. Symptomatic management for nausea. Seizure precautions and fall precautions and follow-up closely. Time with Patient: Greater than 30
[2021-08-22 03:38] VITALS: TEMP 98.4
[2021-08-22 07:29] VITALS: BP 156/66; PULSE 58; RESP 18
[2021-08-22] MEDS: MULTIVITAMINS, THERA 1 EACH TAB PO SCH (07:45)
[2021-08-22] MEDS: THIAMINE 100 MG TAB PO SCH (07:45)
[2021-08-22 08:27] LABS: Basophils # (A) 0.03 X 10*3/uL (0.00-0.10); Basophils % (A) 0.3 %; Eosinophils # (A) 0.16 X 10*3/uL (0.04-0.35); Eosinophils % (A) 1.7 %; HCT 38.8 % (37.2-46.3); HGB 12.6 g/dL (12.0-15.0); Immature Grans, Automated 0.2 %; Lymphocytes # (A) 2.76 X 10*3/uL (0.90-5.00); MCH 30.7 pg (27.0-32.0); MCHC 32.5 g/dL (32.0-37.0); MCV 94.6 fL (80.0-97.0); Mean Platelet Volume 11.3 fL (9.5-12.2); Monocytes # (A) 0.64 X 10*3/uL (0.20-1.00); Monocytes % (A) 6.7 %; NRBC Per 100 WBC 0 /100 WBCS (0.0-0.0); Neutrophils % (A) 62.1 %; Platelet Count 161 X 10*3/uL (140-440); RDW 13.2 % (11.5-14.5); WBC 9.51 X 10*3/uL (4.50-10.00)
[2021-08-22] MEDS ORDERED: HEPARIN SODIUM,PORCINE/PF 5,000 UNIT/0.5 ML SYRINGE SQ SCH (09:00)
[2021-08-22 09:12] LABS: African American GFR (CKD) 145.8 (60.0-200.0); Albumin 3.8 g/dL (3.8-4.9); Albumin/Globulin Ratio 1.9 (1.60-3.17); Anion Gap 10.6 mmol/L (10.00-18.00); Blood Urea Nitrogen 10.2 mg/dL (9.0-27.0); Calcium 8.7 mg/dL (8.7-10.3); Carbon Dioxide 22.4 mmol/L (20.0-27.5); Non-African American GFR(CKD) 125.8 (60.0-200.0); Potassium 3.9 mmol/L (3.5-5.5); Total Bilirubin 2.2 mg/dL (0.30-1.20); Total Protein 5.8 g/dL (6.2-8.2)
--- NOTE | 2021-08-24 10:00 | P.DS ---
Providers Date of admission: 08/21/21 04:00 Expected date of discharge: 08/22/21 Attending physician: Guillermo Kahn Primary care physician: Shannon Damon Hospital Course: Final diagnosis Acute EtOH intoxication Alcohol withdrawal symptoms UDS positive for marijuana and benzodiazepines Anxiety Currently everyday smoker Daily heavy alcohol abuse DVT prophylaxis Discharge disposition Patient is being discharged in a stable condition with guarded prognosis to home. Patient will follow-up with Dr. Damon in the outpatient setting upon discharge. Patient is to also follow-up with [facility] and AA meetings as scheduled. Patient will continue on a Librium taper 25 mg 3 times a day for 2 days, 25 mg twice daily for 2 days, then 25 mg daily for 2 days. Total time taken is greater than 35 minutes. Hospital course This is a 26-year-old female who was recently admitted with alcohol intoxication and acute alcohol withdrawal. Patient has an extensive past medical history of seizure disorder induced by alcohol and heavy alcohol use with ongoing nicotine use and marijuana. Patient was maintained on Librium CIWA protocol due to shortage of Ativan and did well overnight and IV hydration. Patient this nannette tovar is awake alert and oriented 3 well-developed well-nourished denying any withdrawal symptoms able to eat and walk to the bathroom with a steady gait. Patient would like to be discharged home. Discussed with the patient about possible alcohol rehab and patient would like to continue with AA meetings as that helped her. Patient encouraged to follow-up with primary care provider and continue on a Librium taper and strongly encouraged to avoid all alcohol intake. Currently no reports of chest pain, shortness of breath, or palpitations. Patient is afebrile. No reports of nausea or vomiting and patient is tolerating diet. Patient will be is charged home today. Physical exam: Gen: This is a 26-year-old female awake, alert and oriented 3, well-developed, well-nourished HEENT: Head is atraumatic, normocephalic. Pupils equal, round. Sclerae is anicteric. NECK: Supple. No JVD. No lymphadenopathy. No thyromegaly. LUNGS: Clear to auscultation. No wheezes or rhonchi. No intercostal retractions. HEART: Regular rate and rhythm. No murmur. ABDOMEN: Soft. Bowel sounds are present. No masses. No tenderness. EXTREMITIES: No pedal edema. No calf tenderness. NEUROLOGICAL: Patient is awake, alert and oriented x3. Cranial nerves 2 through 12 are grossly intact. Please refer to medication reconciliation sheet for a list of medications. The impression and plan of care has been dictated by Etta Pleitez, Nurse Practitioner as directed. Dr. Trixie MD I have performed a history and examination and MDM of this patient, discussed the same with the dictator, and agree with the dictator's assessment and plan as written ,documented as a scribe. Based on total visit time, I have performed more than 50% of the visit. Patient Condition at Discharge: Fair Plan - Discharge Summary Discharge Rx Participant: Yes New Discharge Prescriptions: New chlordiazePOXIDE HCl [Librium] 25 mg PO Q4H PRN #12 cap PRN Reason: CIWA 4 to 5 Multivitamins, Thera [Multivitamin (formulary)] 1 each PO DAILY 30 Days #30 tab Thiamine [Vitamin B-1] 100 mg PO BID-W/MEALS #60 tab Discharge Medication List Multivitamins, Thera [Multivitamin (formulary)] 1 each PO DAILY 30 Days #30 tab 08/22/21 [Rx] Thiamine [Vitamin B-1] 100 mg PO BID-W/MEALS #60 tab 08/22/21 [Rx] chlordiazePOXIDE HCl [Librium] 25 mg PO Q4H PRN #12 cap 08/22/21 [Rx] Follow up Appointment(s)/Referral(s): Shannon Damon MD [Primary Care Provider] - 1-2 days Patient Instructions/Handouts: Acute Nausea and Vomiting in Children (ED), Alcohol Intoxication (IP), Abuse of Alcohol (GEN), At-Risk Alcohol Use (IP), Alcohol Withdrawal (IP) Activity/Diet/Wound Care/Special Instructions: Activity Limited until follow-up Follow-up with primary care provider on discharge Patient is to continue with Librium taper and avoid all alcohol intake Continue with AA meetings Follow-up with [facility] and resources for alcohol rehab Discharge/Stand Alone Forms: AA Meetings [facility], Who Do I Call?, Community Resources, Outpatient Counseling Discharge Disposition: HOME SELF-CARE
== END 2021-08-22 14:32 | disposition home or self-care (01) | DRG 897 ==
LOC: EC 00:44 → 4SSUR 04:00 → 6NMEDSUR 17:05
PROVIDERS: ADMIT Hospitalist; ATTEND Hospitalist
DX: F10.229 Alcohol dependence with intoxication, unspecified (principal); F10.239 Alcohol dependence with withdrawal, unspecified; E86.0 Dehydration; F41.9 Anxiety disorder, unspecified; G40.909 Epilepsy, unspecified, not intractable, without status epilepticus; Y90.6 Blood alcohol level of 120-199 mg/100 ml; F17.210 Nicotine dependence, cigarettes, uncomplicated; R11.2 Nausea with vomiting, unspecified; R19.7 Diarrhea, unspecified; R03.0 Elevated blood-pressure reading, without diagnosis of hypertension; Z82.49 Family history of ischemic heart disease and other diseases of the circulatory system
CPT/HCPCS: 36415; 80053; 80306; 80320; 81001; 83690; 83735; 84100; 85025; 96361; 96372; 96374; 96375; 99285

== ENCOUNTER 2021-09-08 10:44 | Inpatient (IN) | payer OTHER ==
[2021-09-08] MEDS ORDERED: FAMOTIDINE 20 MG/2 ML VIAL IV STA (11:33)
[2021-09-08] MEDS ORDERED: SODIUM CHLORIDE 0.9% 1,000 ML IV STA (11:33)
[2021-09-08] MEDS ORDERED: ONDANSETRON 4 MG/2 ML VIAL IVP STA (11:33)
--- NOTE | 2021-09-08 11:38 | ED ---
Alcohol HPI - General Chief Complaint: Alcohol Stated Complaint: alcohol withdrawl Time Seen by Provider: 09/08/21 11:25 Source: patient, family, RN notes reviewed, old records reviewed Mode of arrival: ambulatory - History of Present Illness Initial Comments: 26-year-old female, alert and oriented, presents with significant other and friend requesting detox. Patient states that she was drinking again last night and this morning. States that she was discharged from the hospital on August 22 on Librium and did finish that medication. She states that she has had abdominal pain and a 20 pound weight loss over the past 3 months. She reports a lack of appetite. Family is concerned for pancreatitis due to her excessive drinking and abdominal pain. She is pack-a-day smoker. Denies any drug use. MD Complaint: alcohol intoxication Last Drink: just [employer] Previous Visits for Alcohol Intoxication?: Yes Recent Trauma: No Associated Symptoms: nausea, vomiting, other (headache) Treatments Prior to Arrival: none - Related Data Home Medications Medication Instructions Recorded Confirmed FLUoxetine HCL [PROzac] 10 mg PO DAILY 09/08/21 09/08/21 Multivitamins, Thera [Multivitamin 1 tab PO DAILY 09/08/21 09/08/21 (formulary)] amLODIPine [Norvasc] 10 mg PO DAILY 09/08/21 09/08/21 busPIRone HCl [Buspar] 10 mg PO TID 09/08/21 09/08/21 hydroCHLOROthiazide [Hydrodiuril] 25 mg PO DAILY 09/08/21 09/08/21 Previous Rx's Medication Instructions Recorded Thiamine [Vitamin B-1] 100 mg PO BID-W/MEALS #60 tab 08/22/21 Allergies Allergy/AdvReac Type Severity Reaction Status Date / Time No Known Allergies Allergy Verified 09/08/21 13:44 Review of Systems ROS Statement: Those systems with pertinent positive or pertinent negative responses have been documented in the HPI. ROS Other: All systems not noted in ROS Statement are negative. Past Medical History Past Medical History: No Reported History, Seizure Disorder Additional Past Medical History / Comment(s): PT has hx of seizures when detoxing from ETOH History of Any Multi-Drug Resistant Organisms: None Reported Past Surgical History: No Surgical Hx Reported Additional Past Surgical History / Comment(s): Had nerve cyst removed from wrist when young. Past Psychological History: Anxiety, Depression Smoking Status: Current every day smoker Past Alcohol Use History: Abuse, Daily, Heavy Past Drug Use History: Marijuana - Past Family History Mother Family Medical History: Hyperlipidemia General Exam General appearance: alert, in no apparent distress Head exam: Present: atraumatic, normocephalic Eye exam: Present: normal appearance. Absent: scleral icterus, conjunctival injection, periorbital swelling, periorbital tenderness ENT exam: Present: mucous membranes moist Neck exam: Present: normal inspection, full ROM. Absent: tenderness, meningi smus, lymphadenopathy Respiratory exam: Present: normal lung sounds bilaterally. Absent: respiratory distress, accessory muscle use Cardiovascular Exam: Present: regular rate, normal rhythm GI/Abdominal exam: Present: soft. Absent: distended, tenderness, rigid Extremities exam: Present: normal inspection, normal capillary refill. Absent: tenderness, pedal edema Back exam: Present: normal inspection, full ROM. Absent: tenderness, CVA tenderness (R), CVA tenderness (L), rash noted Neurological exam: Present: alert, oriented X3 Psychiatric exam: Present: normal affect, normal mood Skin exam: Present: warm, dry, normal color. Absent: cyanosis, diaphoretic, petechiae, pallor Course Vital Signs 09/08/21 09/08/21 11:02 16:36 Temperature 98.2 F Pulse Rate 94 97 Respiratory 18 18 Rate Blood Pressure 151/82 140/87 O2 Sat by Pulse 100 95 Oximetry Medical Decision Making - Medical Decision Making On exam patient's abdomen is soft and nontender. No Leukocytosis. Hemoglobin and hematocrit are stable. Patient's lipase 1361 with an EtOH of 372. Patient will be admitted with acute alcohol intoxication and pancreatitis. Case discussed with Dr. Palacios. I did speak with Dr. Bernal, he was advised that case management recommended observation vs admission. Patient is agreeable to this plan of care. - Lab Data Result diagrams: 09/08/21 11:41 09/08/21 11:41 Lab Results 09/08/21 09/08/21 09/08/21 Range/Units 11:41 11:41 11:41 WBC 9.3 (3.8-10.6) k/uL RBC 4.50 (3.80-5.40) m/uL Hgb 14.7 (11.4-16.0) gm/dL Hct 43.4 (34.0-46.0) % MCV 96.6 (80.0-100.0) fL MCH 32.8 (25.0-35.0) pg MCHC 33.9 (31.0-37.0) g/dL RDW 13.4 (11.5-15.5) % Plt Count 334 (150-450) k/uL MPV 8.1 Neutrophils % 40 % Lymphocytes % 52 % Monocytes % 2 % Eosinophils % 2 % Basophils % 1 % Neutrophils # 3.7 (1.3-7.7) k/uL Lymphocytes # 4.8 (1.0-4.8) k/uL Monocytes # 0.2 (0-1.0) k/uL Eosinophils # 0.2 (0-0.7) k/uL Basophils # 0.1 (0-0.2) k/uL PT 10.6 (9.0-12.0) sec INR 1.0 (<1.2) Sodium (137-145) mmol/L Potassium (3.5-5.1) mmol/L Chloride (98-107) mmol/L Carbon Dioxide (22-30) mmol/L Anion Gap mmol/L BUN (7-17) mg/dL Creatinine (0.52-1.04) mg/dL Est GFR (CKD-EPI)AfAm (>60 ml/min/1.73 sqM) Est GFR (CKD-EPI)NonAf (>60 ml/min/1.73 sqM) Glucose (74-99) mg/dL Calcium (8.4-10.2) mg/dL Magnesium (1.6-2.3) mg/dL Total Bilirubin (0.2-1.3) mg/dL AST (14-36) U/L ALT (4-34) U/L Alkaline Phosphatase (38-126) U/L Total Protein (6.3-8.2) g/dL Albumin (3.5-5.0) g/dL Amylase (30-110) U/L Lipase (23-300) U/L Urine Color Colorless Urine Appearance Clear (Clear) Urine pH 6.5 (5.0-8.0) Ur Specific [place] 1.002 (1.001-1.035) Urine Protein Negative (Negative) Urine Glucose (UA) Negative (Negative) Urine Ketones Negative (Negative) Urine Blood Negative (Negative) Urine Nitrite Negative (Negative) Urine Bilirubin Negative (Negative) Urine Urobilinogen <2.0 (<2.0) mg/dL Ur Leukocyte Esterase Negative (Negative) Urine Opiates Screen Not Detected (NotDetected) Ur Oxycodone Screen Not Detected (NotDetected) Urine Methadone Screen Not Detected (NotDetected) Ur Propoxyphene Screen Not Detected (NotDetected) Ur Barbiturates Screen Not Detected (NotDetected) U Tricyclic Antidepress Not Detected (NotDetected) Ur Phencyclidine Scrn Not Detected (NotDetected) Ur Amphetamines Screen Not Detected (NotDetected) U Methamphetamines Scrn Not Detected (NotDetected) U Benzodiazepines Scrn Detected H (NotDetected) Urine Cocaine Screen Not Detected (NotDetected) U Marijuana (THC) Screen Detected H (NotDetected) Serum Alcohol mg/dL 09/08/21 Range/Units 11:41 WBC (3.8-10.6) k/uL RBC (3.80-5.40) m/uL Hgb (11.4-16.0) gm/dL Hct (34.0-46.0) % MCV (80.0-100.0) fL MCH (25.0-35.0) pg MCHC (31.0-37.0) g/dL RDW (11.5-15.5) % Plt Count (150-450) k/uL MPV Neutrophils % % Lymphocytes % % Monocytes % % Eosinophils % % Basophils % % Neutrophils # (1.3-7.7) k/uL Lymphocytes # (1.0-4.8) k/uL Monocytes # (0-1.0) k/uL Eosinophils # (0-0.7) k/uL Basophils # (0-0.2) k/uL PT (9.0-12.0) sec INR (<1.2) Sodium 148 H (137-145) mmol/L Potassium 4.3 (3.5-5.1) mmol/L Chloride 111 H (98-107) mmol/L Carbon Dioxide 26 (22-30) mmol/L Anion Gap 11 mmol/L BUN 8 (7-17) mg/dL Creatinine 0.57 (0.52-1.04) mg/dL Est GFR (CKD-EPI)AfAm >90 (>60 ml/min/1.73 sqM) Est GFR (CKD-EPI)NonAf >90 (>60 ml/min/1.73 sqM) Glucose 91 (74-99) mg/dL Calcium 9.3 (8.4-10.2) mg/dL Magnesium 2.3 (1.6-2.3) mg/dL Total Bilirubin 0.3 (0.2-1.3) mg/dL AST 25 (14-36) U/L ALT 15 (4-34) U/L Alkaline Phosphatase 61 (38-126) U/L Total Protein 7.4 (6.3-8.2) g/dL Albumin 4.8 (3.5-5.0) g/dL Amylase 73 (30-110) U/L Lipase 1361 H (23-300) U/L Urine Color Urine Appearance (Clear) Urine pH (5.0-8.0) Ur Specific [place] (1.001-1.035) Urine Protein (Negative) Urine Glucose (UA) (Negative) Urine Ketones (Negative) Urine Blood (Negative) Urine Nitrite (Negative) Urine Bilirubin (Negative) Urine Urobilinogen (<2.0) mg/dL Ur Leukocyte Esterase (Negative) Urine Opiates Screen (NotDetected) Ur Oxycodone Screen (NotDetected) Urine Methadone Screen (NotDetected) Ur Propoxyphene Screen (NotDetected) Ur Barbiturates Screen (NotDetected) U Tricyclic Antidepress (NotDetected) Ur Phencyclidine Scrn (NotDetected) Ur Amphetamines Screen (NotDetected) U Methamphetamines Scrn (NotDetected) U Benzodiazepines Scrn (NotDetected) Urine Cocaine Screen (NotDetected) U Marijuana (THC) Screen (NotDetected) Serum Alcohol 372 H* mg/dL Disposition Clinical Impression: Alcoholic intoxication, Pancreatitis Disposition: ADMITTED IP TO THIS [facility] Decision Date: 09/08/21 Decision Time: 12:50
[2021-09-08] MEDS ORDERED: LORazepam 2 MG/ML INJ IV PRN (11:49)
[2021-09-08] MEDS ORDERED: THIAMINE 100 MG/ML 2 ML VIAL IM STA (11:49)
[2021-09-08 11:54] LABS: Basophils # (A) 0.1 k/uL (0-0.2); Basophils % (A) 1 %; Eosinophils # (A) 0.2 k/uL (0-0.7); Eosinophils % (A) 2 %; HCT 43.4 % (34.0-46.0); HGB 14.7 gm/dL (11.4-16.0); Lymphocytes # (A) 4.8 k/uL (1.0-4.8); Lymphocytes % (A) 52 %; MCH 32.8 pg (25.0-35.0); MCHC 33.9 g/dL (31.0-37.0); MCV 96.6 fL (80.0-100.0); Mean Platelet Volume 8.1; Monocytes # (A) 0.2 k/uL (0-1.0); Monocytes % (A) 2 %; Neutrophils # (A) 3.7 k/uL (1.3-7.7); Neutrophils % (A) 40 %; Platelet Count 334 k/uL (150-450); RDW 13.4 % (11.5-15.5); WBC 9.3 k/uL (3.8-10.6)
[2021-09-08 12:19] LABS: ALT 15 U/L (4-34); AST 25 U/L (14-36); African American GFR (CKD) >90 (>60 ml/min/1.73 sqM); Albumin 4.8 g/dL (3.5-5.0); Alkaline Phosphatase 61 U/L (38-126); Amylase 73 U/L (30-110); Anion Gap 11 mmol/L; Blood Urea Nitrogen 8 mg/dL (7-17); Calcium 9.3 mg/dL (8.4-10.2); Carbon Dioxide 26 mmol/L (22-30); Chloride 111 mmol/L (98-107); Glucose 91 mg/dL (74-99); Lipase 1361 U/L (23-300); Magnesium 2.3 mg/dL (1.6-2.3); Non-African American GFR(CKD) >90 (>60 ml/min/1.73 sqM); Potassium 4.3 mmol/L (3.5-5.1); Prothrombin Time 10.6 sec (9.0-12.0); Sodium 148 mmol/L (137-145); Total Bilirubin 0.3 mg/dL (0.2-1.3); Total Protein 7.4 g/dL (6.3-8.2)
[2021-09-08 12:44] LABS: Alcohol 372 mg/dL
[2021-09-08] MEDS ORDERED: ONDANSETRON 4 MG/2 ML VIAL IVP PRN (13:10)
[2021-09-08] MEDS ORDERED: NALOXONE 0.4 MG/ML 1 ML VIAL IV PRN (13:10)
[2021-09-08 13:14] LABS: Appearance,Urine Clear (Clear); Bilirubin,Urine Negative (Negative); Blood,Urine Negative (Negative); Color,Urine Colorless; Glucose,Urine (UA) Negative (Negative); Ketones,Urine Negative (Negative); Leukocyte Esterase,Urine Negative (Negative); Nitrite,Urine Negative (Negative); PH, Urine 6.5 (5.0-8.0); Protein,Urine Negative (Negative); Specific Gravity,Urine 1.002 (1.001-1.035); Urobilinogen,Urine <2.0 mg/dL (<2.0)
[2021-09-08 13:36] LABS: Amphetamine Screen,Urine Not Detected (NotDetected); Barbiturate Screen,Urine Not Detected (NotDetected); Benzodiazepines Screen,Urine Detected (NotDetected); Cocaine Screen,Urine Not Detected (NotDetected); Methadone Screen, Urine Not Detected (NotDetected); Opiate Screen,Urine Not Detected (NotDetected); Oxycodone Screen, Urine Not Detected (NotDetected); Phencyclidine Screen,Urine Not Detected (NotDetected); Tricyclic Antidepressant,Urine Not Detected (NotDetected); Urn Cannabinoid Scrn Detected (NotDetected)
[2021-09-08] MEDS: SODIUM CHLORIDE 0.9% 1,000 ML IV SCH ×2 (14:31→17:26)
[2021-09-08] MEDS: LORazepam 2 MG/ML INJ IV PRN ×2 (16:49→21:28)
[2021-09-08] MEDS: THIAMINE 100 MG TAB PO SCH (19:07)
[2021-09-08] MEDS: IOPAMIDOL CONTRAST (ORAL USE) VIAL PO PRN ×2 (19:16→20:06)
[2021-09-08] MEDS: busPIRone HCl 10 MG TAB PO SCH (21:17)
--- NOTE | 2021-09-08 21:30 | CT ---
EXAMINATION TYPE: CT abdomen pelvis wo con DATE OF EXAM: 09/08/2021 COMPARISON: None available HISTORY: pancreatitis CT DLP: 355.7 mGycm Automated exposure control for dose reduction was used. TECHNIQUE: Helical acquisition of images was performed from the lung bases through the pelvis. FINDINGS: LUNG BASES: No significant abnormality is appreciated. LIVER/GB: No significant abnormality is appreciated. PANCREAS: No significant abnormality is seen. SPLEEN: No significant abnormality is seen. ADRENALS: No significant abnormality is seen. KIDNEYS: No significant abnormality is seen. FREE AIR: No free air is visualized RETROPERITONEAL ADENOPATHY: None visualized REPRODUCTIVE ORGANS: No significant abnormality is seen URINARY BLADDER: No significant abnormality is seen. PELVIC ADENOPATHY: None visualized. OSSEOUS STRUCTURES: No significant abnormality is seen. BOWEL: No significant abnormality is seen. OTHER: None IMPRESSION: NO DEFINITE ACUTE ABNORMALITY OR SIGNIFICANT INFLAMMATORY CHANGES SEEN.
[2021-09-09] MEDS: LORazepam 2 MG/ML INJ IV PRN ×4 (01:41→21:53)
--- NOTE | 2021-09-09 02:23 | HP ---
HISTORY AND PHYSICAL CHIEF COMPLAINTS: Alcohol withdrawal, abdominal pain and diarrhea. HISTORY OF PRESENT ILLNESS: This 26-year-old woman with past medical history of seizure disorder, history of EtOH, being followed by Dr. Shannon Damon; the patient is apparently going through withdrawals. The patient apparently started drinking again last night and the patient is complaining of abdominal pain as well as some diarrhea. The patient has some 20- pound weight loss, lipase elevated indicating pancreatitis. The patient . There is no history of any fever, rigors, or chills. PAST MEDICAL HISTORY: Seizure disorder, history reviewed. HOME MEDICATIONS: Again reviewed include HydroDIURIL, dose and rest of medications noted. ALLERGIES: None. FAMILY HISTORY: History of hyperlipidemia. SOCIAL HISTORY: History of alcohol, THC, and smoking. REVIEW OF SYSTEMS: A 14-point review of systems is negative except mentioned earlier. PHYSICAL EXAMINATION: VITAL SIGNS: Pulse is 97, blood pressure 140/87, respirations 18. HEENT: Conjunctivae normal. NECK: No jugular venous distention. No carotid bruit. CARDIOVASCULAR: S1, S2. RESPIRATION: Diminished in the bases. No rhonchi, no crackles. ABDOMEN: Soft, mild diffuse tenderness present. No guarding, no rigidity. LEGS: No edema, no swelling. NERVOUS SYSTEM: No focal deficit. ASSESSMENT: 1. Acute alcoholic pancreatitis. 2. Acute alcohol withdrawal syndrome. 3. Anxiety, depression. 4. Multiple medical issues. 5. History of seizure disorder. RECOMMENDATIONS AND DISCUSSION: This 26-year-old woman presented with multiple complex medical issues. We will initiate CIWA protocol. We will repeat amylase and lipase. I would also recommend a CT scan of the abdomen and pelvis to complete the workup. Other than that, alcohol cessation advised. Discussed with the patient and patient's . MMODL / IJN: [id number] /
[2021-09-09] MEDS: hydroCHLOROthiazide 25 MG TAB PO SCH (07:52)
[2021-09-09] MEDS: THIAMINE 100 MG TAB PO SCH ×2 (07:52→16:55)
[2021-09-09] MEDS: FLUoxetine HCL 10 MG CAP PO SCH (07:52)
[2021-09-09] MEDS: MULTIVITAMINS, THERA 1 EACH TAB PO SCH (07:52)
[2021-09-09] MEDS: amLODIPine 10 MG TAB PO SCH (07:52)
[2021-09-09] MEDS: busPIRone HCl 10 MG TAB PO SCH ×3 (07:52→21:53)
[2021-09-09 11:56] LABS: Basophils # (A) 0.07 X 10*3/uL (0.00-0.10); Basophils % (A) 0.8 %; Eosinophils # (A) 0.13 X 10*3/uL (0.04-0.35); Eosinophils % (A) 1.4 %; HCT 40.3 % (37.2-46.3); HGB 13.2 g/dL (12.0-15.0); Immature Grans, Automated 0.3 %; Lymphocytes # (A) 3.54 X 10*3/uL (0.90-5.00); Lymphocytes % (A) 38.4 %; MCH 31.1 pg (27.0-32.0); MCHC 32.8 g/dL (32.0-37.0); MCV 94.8 fL (80.0-97.0); Monocytes # (A) 0.44 X 10*3/uL (0.20-1.00); Monocytes % (A) 4.8 %; NRBC Per 100 WBC 0 /100 WBCS (0.0-0.0); Neutrophils # (A) 5.01 X 10*3/uL (1.80-7.70); Neutrophils % (A) 54.3 %; Platelet Count 236 X 10*3/uL (140-440); RBC 4.25 X 10*6/uL (4.10-5.20); RDW 13.8 % (11.5-14.5); WBC 9.22 X 10*3/uL (4.50-10.00)
[2021-09-09 12:00] LABS: African American GFR (CKD) 117.9 (60.0-200.0); Albumin 4.1 g/dL (3.8-4.9); Albumin/Globulin Ratio 2.05 (1.60-3.17); Anion Gap 9.5 mmol/L (10.00-18.00); BUN/Creat Ratio 15.75 Ratio (12.00-20.00); Blood Urea Nitrogen 12.6 mg/dL (9.0-27.0); Calcium 9.4 mg/dL (8.7-10.3); Carbon Dioxide 28.5 mmol/L (20.0-27.5); Non-African American GFR(CKD) 101.8 (60.0-200.0); Potassium 4.1 mmol/L (3.5-5.5); Total Protein 6.1 g/dL (6.2-8.2)
[2021-09-09 12:37] VITALS: BMI 17.8
--- NOTE | 2021-09-09 17:58 | P.PN ---
Subjective Progress Note Date: 09/09/21 Principal diagnosis: Acute alcoholic pancreatitis EtOH intoxication/withdrawal 26-year-old female, alert and oriented, presents with significant other and friend requesting detox. Patient states that she was drinking again last night and this morning. States that she was discharged from the hospital on August 22 on Librium and did finish that medication. She states that she has had abdominal pain and a 20 pound weight loss over the past 3 months. She reports a lack of appetite. Family is concerned for pancreatitis due to her excessive drinking and abdominal pain. She is pack-a-day smoker. Denies any drug use. Objective - Vital Signs Vital signs: Vital Signs Temp 98.4 F 09/09/21 08:00 Pulse 83 09/09/21 08:00 Resp 14 09/09/21 08:00 BP 138/83 09/09/21 08:00 Pulse Ox 96 09/09/21 08:00 FiO2 Intake & Output 09/08/21 09/09/21 09/09/21 18:59 06:59 18:59 Intake Total 1500 Balance 1500 Weight 51.71 kg Intake: Intake, IV Titration 900 Amount Sodium Chloride 0.9% 1, 900 000 ml @ 75 mls/hr IV . [id number] ALICIA Rx#:[id number] Oral 600 Other: Voiding Method Toilet # Voids 0 - Exam PHYSICAL EXAMINATION: GENERAL: The patient is alert and oriented x3, not in any acute distress. Well developed, well nourished. HEENT: Pupils are round and equally reacting to light. EOMI. No scleral icterus. No conjunctival pallor. Normocephalic, atraumatic. No pharyngeal erythema. No thyromegaly. CARDIOVASCULAR: S1 and S2 present. No murmurs, rubs, or gallops. PULMONARY: Chest is clear to auscultation, no wheezing or crackles. ABDOMEN: Soft, nontender, nondistended, normoactive bowel sounds. No palpable organomegaly. MUSCULOSKELETAL: No joint swelling or deformity. EXTREMITIES: No cyanosis, clubbing, or pedal edema. NEUROLOGICAL: Gross neurological examination did not reveal any focal deficits. SKIN: No rashes. - Labs CBC & Chem 7: 09/09/21 07:59 09/09/21 07:59 Labs: Abnormal Lab Results - Last 24 Hours (Table) 09/08/21 09/08/2109/09/22 Range/Units 11:41 11:41 07:59 Sodium 148 H (137-145) mmol/L Chloride 111 H (98-107) mmol/L Carbon Dioxide 28.5 H (20.0-27.5) mmol/L Anion Gap 9.50 L (10.00-18.00) mmol/L Glucose 66 L (70-110) mg/dL Total Protein 6.1 L (6.2-8.2) g/dL Lipase 1361 H (23-300) U/L U Benzodiazepines Scrn Detected H (NotDetected) U Marijuana (THC) Screen Detected H (NotDetected) Serum Alcohol 372 H* mg/dL Assessment and Plan Assessment: 1. Acute alcoholic pancreatitis 2. EtOH intoxication/withdrawal 3. Anxiety/depression 4. Seizure disorder Patient remains on IV fluids in form of normal saline at a rate of 1 30 mL an hour; continue to monitor strict BHANU's, daily weights; monitor renal function and electrolytes - Labs are reviewed and lipase is down to normal; patient denies any further abdominal pain; clear liquid diet with plans to advance as tolerated was discussed with patient and she is agreeable - Patient has been placed on clear liquid diet - We will continue with CIWA protocol with Shyane
[2021-09-09] MEDS: SODIUM CHLORIDE 0.9% 1,000 ML IV SCH (21:53)
[2021-09-10 02:25] VITALS: RESP 15
[2021-09-10] MEDS: hydroCHLOROthiazide 25 MG TAB PO SCH (08:15)
[2021-09-10] MEDS: THIAMINE 100 MG TAB PO SCH (08:15)
[2021-09-10] MEDS: FLUoxetine HCL 10 MG CAP PO SCH (08:15)
[2021-09-10] MEDS: amLODIPine 10 MG TAB PO SCH (08:15)
[2021-09-10] MEDS: MULTIVITAMINS, THERA 1 EACH TAB PO SCH (08:15)
[2021-09-10] MEDS: busPIRone HCl 10 MG TAB PO SCH (08:15)
[2021-09-10 08:55] VITALS: TEMP 98.3
[2021-09-10] MEDS ORDERED: chlordiazePOXIDE 25 MG CAP PO SCH ×2 (11:15→12:15)
[2021-09-10 12:00] LABS: Basophils # (A) 0.05 X 10*3/uL (0.00-0.10); Basophils % (A) 0.8 %; Eosinophils # (A) 0.14 X 10*3/uL (0.04-0.35); Eosinophils % (A) 2.3 %; HCT 39.4 % (37.2-46.3); HGB 12.9 g/dL (12.0-15.0); Immature Grans, Automated 0.2 %; Lymphocytes # (A) 2.62 X 10*3/uL (0.90-5.00); Lymphocytes % (A) 42.8 %; MCH 30.8 pg (27.0-32.0); MCHC 32.7 g/dL (32.0-37.0); Mean Platelet Volume 11.2 fL (9.5-12.2); Monocytes # (A) 0.35 X 10*3/uL (0.20-1.00); Monocytes % (A) 5.7 %; NRBC Per 100 WBC 0 /100 WBCS (0.0-0.0); Neutrophils # (A) 2.95 X 10*3/uL (1.80-7.70); Neutrophils % (A) 48.2 %; Platelet Count 229 X 10*3/uL (140-440); RBC 4.19 X 10*6/uL (4.10-5.20); RDW 13.2 % (11.5-14.5); WBC 6.12 X 10*3/uL (4.50-10.00)
[2021-09-10 13:04] LABS: African American GFR (CKD) 130.7 (60.0-200.0); Anion Gap 9.2 mmol/L (10.00-18.00); BUN/Creat Ratio 13.74 Ratio (12.00-20.00); Blood Urea Nitrogen 10.1 mg/dL (9.0-27.0); Calcium 9.2 mg/dL (8.7-10.3); Carbon Dioxide 26.5 mmol/L (20.0-27.5); Non-African American GFR(CKD) 112.7 (60.0-200.0); Potassium 3.9 mmol/L (3.5-5.5)
[2021-09-10 16:52] VITALS: BP 128/71; PULSE 67
== END 2021-09-10 16:32 | disposition home or self-care (01) | DRG 439 ==
LOC: EC 10:44 → 4SSUR 12:54
PROVIDERS: ADMIT Hospitalist; ATTEND Hospitalist
DX: K85.20 Alcohol induced acute pancreatitis without necrosis or infection (principal); F10.231 Alcohol dependence with withdrawal delirium; F10.239 Alcohol dependence with withdrawal, unspecified; Z68.1 Body mass index [BMI] 19.9 or less, adult; F10.229 Alcohol dependence with intoxication, unspecified; Y90.8 Blood alcohol level of 240 mg/100 ml or more; G40.909 Epilepsy, unspecified, not intractable, without status epilepticus; F41.9 Anxiety disorder, unspecified; R19.7 Diarrhea, unspecified; F32.A Depression, unspecified; F17.210 Nicotine dependence, cigarettes, uncomplicated; R63.4 Abnormal weight loss; Z56.0 Unemployment, unspecified; Z71.3 Dietary counseling and surveillance; Z82.49 Family history of ischemic heart disease and other diseases of the circulatory system; Z79.899 Other long term (current) drug therapy
CPT/HCPCS: 36415; 74176; 80048; 80053; 80306; 80320; 81003; 82150; 83690; 83735; 85025; 85610; 96361; 96374; 96375; 99285

== ENCOUNTER 2021-10-04 18:02 | Observation (INO) | payer OTHER ==
[2021-10-04] MEDS ORDERED: SODIUM CHLORIDE 0.9% 500 ML 500 ML IV STA (22:02)
[2021-10-04] MEDS ORDERED: chlordiazePOXIDE 25 MG CAP PO STA ×2 (22:02→22:28)
[2021-10-04] MEDS ORDERED: LORazepam 2 MG/ML INJ IV STA (22:02)
[2021-10-04] MEDS ORDERED: SODIUM CHLORIDE 0.9% 1,000 ML IV STA ×2 (22:02)
--- NOTE | 2021-10-04 22:02 | ED ---
Alcohol HPI - General Chief Complaint: Alcohol Stated Complaint: ETOH Time Seen by Provider: 10/04/21 21:56 Source: patient, RN notes reviewed, old records reviewed Mode of arrival: ambulatory Limitations: no limitations - History of Present Illness Initial Comments: This is a 26-year-old female to the emergency department for evaluation today. Patient presents in for nausea vomiting abdominal pain concern for pancreatitis and concern for alcohol withdrawal. Patient does admit alcohol use today just prior to arrival maybe within the last hour. Patient otherwise has no complaints no travel history or sick contacts. No fevers. No diarrhea. 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) Previous Visits for Alcohol Intoxication?: Yes Recent Trauma: No Associated Symptoms: nausea, depression Treatments Prior to Arrival: none Chronic Alcohol Use: Yes - Related Data Home Medications Medication Instructions Recorded Confirmed FLUoxetine HCL [PROzac] 10 mg PO DAILY 09/08/21 10/04/21 Multivitamins, Thera [Multivitamin 1 tab PO DAILY 09/08/21 10/04/21 (formulary)] amLODIPine [Norvasc] 10 mg PO DAILY 09/08/21 10/04/21 busPIRone HCl [Buspar] 10 mg PO TID 09/08/21 10/04/21 hydroCHLOROthiazide [Hydrodiuril] 25 mg PO DAILY 09/08/21 10/04/21 Previous Rx's Medication Instructions Recorded Thiamine [Vitamin B-1] 100 mg PO BID-W/MEALS #60 tab 08/22/21 Allergies Allergy/AdvReac Type Severity Reaction Status Date / Time No Known Allergies Allergy Verified 10/04/21 18:23 Review of Systems ROS Statement: Those systems with pertinent positive or pertinent negative responses have been documented in the HPI. ROS Other: All systems not noted in ROS Statement are negative. Past Medical History Past Medical History: No Reported History, Seizure Disorder Additional Past Medical History / Comment(s): PT has hx of seizures when detoxing from ETOH History of Any Multi-Drug Resistant Organisms: None Reported Past Surgical History: No Surgical Hx Reported Additional Past Surgical History / Comment(s): Had nerve cyst removed from wrist when young. Past Psychological History: Anxiety, Depression Smoking Status: Current every day smoker Past Alcohol Use History: Abuse, Daily, Heavy Past Drug Use History: Marijuana - Past Family History Mother Family Medical History: Hyperlipidemia General Exam Limitations: no limitations General appearance: alert, in no apparent distress, anxious Head exam: Present: atraumatic, normocephalic, normal inspection Eye exam: Present: normal appearance, PERRL, EOMI. Absent: scleral icterus, conjunctival injection, periorbital swelling ENT exam: Present: normal exam, mucous membranes moist Neck exam: Present: normal inspection. Absent: tenderness, meningismus, lymphadenopathy Respiratory exam: Present: normal lung sounds bilaterally. Absent: respiratory distress, wheezes, rales, rhonchi, stridor Cardiovascular Exam: Present: regular rate, normal rhythm, normal heart sounds. Absent: systolic murmur, diastolic murmur, rubs, gallop, clicks GI/Abdominal exam: Present: soft, normal bowel sounds. Absent: distended, tenderness, guarding, rebound, rigid Extremities exam: Present: normal inspection, full ROM, normal capillary refill. Absent: tenderness, pedal edema, joint swelling, calf tenderness Back exam: Present: normal inspection Neurological exam: Present: alert, oriented X3, CN II-XII intact Psychiatric exam: Present: normal affect, normal mood Skin exam: Present: warm, dry, intact, normal color. Absent: rash Course Vital Signs 10/04/21 18:21 Temperature 98.0 F Pulse Rate 85 Respiratory 20 Rate Blood Pressure 138/84 O2 Sat by Pulse 98 Oximetry - Reevaluation(s) Reevaluation #1: 10/04/21 22:06 Medical record is reviewed Reevaluation #2: 10/04/21 23:23 Patient symptoms improved here in the emergency department Reevaluation #3: 10/04/21 23:23 Patient informed of results and questions answered - Consultations Consultation #1: Spoke with [facility] okay to admit this patient Medical Decision Making - Medical Decision Making 26 female concern for alcohol withdrawal alcohol withdrawal seizures with history of. She is also consider pancreatitis a lipase is normal. Patient be admitted for further evaluation and management - Lab Data Result diagrams: 10/04/21 22:23 10/04/21 22:23 Lab Results 10/04/21 10/04/21 Range/Units 22:23 22:23 WBC 7.8 (3.8-10.6) k/uL RBC 4.80 (3.80-5.40) m/uL Hgb 15.6 (11.4-16.0) gm/dL Hct 45.9 (34.0-46.0) % MCV 95.6 (80.0-100.0) fL MCH 32.4 (25.0-35.0) pg MCHC 33.9 (31.0-37.0) g/dL RDW 12.9 (11.5-15.5) % Plt Count 284 (150-450) k/uL MPV 8.2 Neutrophils % 58 % Lymphocytes % 35 % Monocytes % 3 % Eosinophils % 2 % Basophils % 1 % Neutrophils # 4.5 (1.3-7.7) k/uL Lymphocytes # 2.8 (1.0-4.8) k/uL Monocytes # 0.2 (0-1.0) k/uL Eosinophils # 0.2 (0-0.7) k/uL Basophils # 0.1 (0-0.2) k/uL Sodium 146 H (137-145) mmol/L Potassium 4.0 (3.5-5.1) mmol/L Chloride 105 (98-107) mmol/L Carbon Dioxide 24 (22-30) mmol/L Anion Gap 17 mmol/L BUN 10 (7-17) mg/dL Creatinine 0.59 (0.52-1.04) mg/dL Est GFR (CKD-EPI)AfAm >90 (>60 ml/min/1.73 sqM) Est GFR (CKD-EPI)NonAf >90 (>60 ml/min/1.73 sqM) Glucose 84 (74-99) mg/dL Calcium 9.8 (8.4-10.2) mg/dL Phosphorus 3.4 (2.5-4.5) mg/dL Magnesium 2.0 (1.6-2.3) mg/dL Total Bilirubin 0.6 (0.2-1.3) mg/dL AST 22 (14-36) U/L ALT 15 (4-34) U/L Alkaline Phosphatase 65 (38-126) U/L Total Protein 8.1 (6.3-8.2) g/dL Albumin 5.1 H (3.5-5.0) g/dL Lipase 44 (23-300) U/L Serum Alcohol 195 mg/dL Disposition Clinical Impression: Alcoholic intoxication, Dehydration, Nausea & vomiting, Anxiety, History of seizure due to alcohol withdrawal Disposition: ADMITTED IP TO THIS HOSP Condition: Good Is patient prescribed a controlled substance at d/c from ED?: No Time of Disposition: 23:30
[2021-10-04] MEDS ORDERED: PROCHLORPERAZINE INJ 10 MG/2 ML VIAL IVP STA (22:04)
[2021-10-04] MEDS ORDERED: ONDANSETRON 4 MG/2 ML VIAL IVP PRN (22:32)
[2021-10-04] MEDS ORDERED: NALOXONE 0.4 MG/ML 1 ML VIAL IV PRN (22:32)
[2021-10-04] MEDS ORDERED: MORPHINE SULFATE 4 MG/ML SYRINGE IV PRN (22:32)
[2021-10-04] MEDS ORDERED: LORazepam 2 MG/ML INJ IV PRN ×3 (22:32)
[2021-10-04] MEDS ORDERED: THIAMINE 100 MG/ML 2 ML VIAL IM STA (22:32)
[2021-10-04 22:34] LABS: Basophils # (A) 0.1 k/uL (0-0.2); Basophils % (A) 1 %; Eosinophils # (A) 0.2 k/uL (0-0.7); Eosinophils % (A) 2 %; HCT 45.9 % (34.0-46.0); HGB 15.6 gm/dL (11.4-16.0); Lymphocytes # (A) 2.8 k/uL (1.0-4.8); Lymphocytes % (A) 35 %; MCH 32.4 pg (25.0-35.0); MCHC 33.9 g/dL (31.0-37.0); MCV 95.6 fL (80.0-100.0); Mean Platelet Volume 8.2; Monocytes # (A) 0.2 k/uL (0-1.0); Monocytes % (A) 3 %; Neutrophils # (A) 4.5 k/uL (1.3-7.7); Neutrophils % (A) 58 %; Platelet Count 284 k/uL (150-450); RDW 12.9 % (11.5-15.5); WBC 7.8 k/uL (3.8-10.6)
[2021-10-04 22:49] LABS: ALT 15 U/L (4-34); AST 22 U/L (14-36); African American GFR (CKD) >90 (>60 ml/min/1.73 sqM); Albumin 5.1 g/dL (3.5-5.0); Alkaline Phosphatase 65 U/L (38-126); Anion Gap 17 mmol/L; Blood Urea Nitrogen 10 mg/dL (7-17); Calcium 9.8 mg/dL (8.4-10.2); Carbon Dioxide 24 mmol/L (22-30); Chloride 105 mmol/L (98-107); Glucose 84 mg/dL (74-99); Lipase 44 U/L (23-300); Non-African American GFR(CKD) >90 (>60 ml/min/1.73 sqM); Phosphorus 3.4 mg/dL (2.5-4.5); Sodium 146 mmol/L (137-145); Total Bilirubin 0.6 mg/dL (0.2-1.3); Total Protein 8.1 g/dL (6.3-8.2)
[2021-10-04 22:57] LABS: Alcohol 195 mg/dL
[2021-10-04] MEDS: SODIUM CHLORIDE 0.9% 1,000 ML IV SCH (22:57)
[2021-10-05 05:46] LABS: Basophils # (A) 0.1 k/uL (0-0.2); Basophils % (A) 1 %; Eosinophils # (A) 0.2 k/uL (0-0.7); Eosinophils % (A) 3 %; HCT 41.7 % (34.0-46.0); HGB 13.7 gm/dL (11.4-16.0); Lymphocytes # (A) 3.3 k/uL (1.0-4.8); Lymphocytes % (A) 41 %; MCH 31.4 pg (25.0-35.0); MCHC 32.8 g/dL (31.0-37.0); MCV 95.8 fL (80.0-100.0); Mean Platelet Volume 8.3; Monocytes # (A) 0.3 k/uL (0-1.0); Monocytes % (A) 4 %; Neutrophils % (A) 50 %; Platelet Count 215 k/uL (150-450); RBC 4.36 m/uL (3.80-5.40); RDW 12.6 % (11.5-15.5)
[2021-10-05 06:05] LABS: ALT 12 U/L (4-34); AST 19 U/L (14-36); African American GFR (CKD) >90 (>60 ml/min/1.73 sqM); Albumin 3.8 g/dL (3.5-5.0); Alkaline Phosphatase 56 U/L (38-126); Anion Gap 12 mmol/L; Blood Urea Nitrogen 11 mg/dL (7-17); Calcium 8.6 mg/dL (8.4-10.2); Carbon Dioxide 21 mmol/L (22-30); Chloride 110 mmol/L (98-107); Glucose 74 mg/dL (74-99); Lipase 31 U/L (23-300); Magnesium 1.7 mg/dL (1.6-2.3); Non-African American GFR(CKD) >90 (>60 ml/min/1.73 sqM); Potassium 3.6 mmol/L (3.5-5.1); Sodium 143 mmol/L (137-145); Total Bilirubin 0.7 mg/dL (0.2-1.3); Total Protein 6.3 g/dL (6.3-8.2)
[2021-10-05] MEDS: THIAMINE 100 MG TAB PO SCH ×2 (08:54→17:10)
[2021-10-05] MEDS: SODIUM CHLORIDE 0.9% 1,000 ML IV SCH ×3 (10:56→19:44)
--- NOTE | 2021-10-05 11:30 | P.HPIM ---
History of Present Illness This is a pleasant 26 years old female with past medical history of depression, hypertension, history of seizure being not on medication. 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 She denies any specific complaint however through the encounter she was complaining of from some mild abdominal pain and tenderness that she was concerned about pancreatitis because she had it before however her lipase is normal. Also patient denies any vom iting or diarrhea. She has good appetite but she does not like the food in the hospital. No diarrhea. Also she denies any chest pain or dyspnea. No dizziness or weakness or numbness, she has some mild headache. She denies any urinary complaints She denies alcohol or illicit drugs. She smokes about 1 pack per day and she was counseled to quit but she declines nicotine patch. She says she's mildly depressed but she does not feel hopeless helpless. She denies homicidal or suicidal ideation. She denies hallucination. Vitas looks stable. Unremarkable CBC, BMP. Liver Enzymes Not Elevated. Bilirubin Normal. Lipase Normal at 44. Serum alcohol Elevated 195 Review of Systems Review of systems CONSTITUTIONAL: No fever, no malaise, no fatigue. HEENT: No recent visual problems or hearing problems. Denied any sore throat. CARDIOVASCULAR: No orthopnea, PND, no palpitations, no syncope. PULMONARY: No shortness of breath, no cough, no hemoptysis. GASTROINTESTINAL: No diarrhea, no nausea, no vomiting, no abdominal pain. Normoactive bowel sounds. NEUROLOGICAL: No headaches, no weakness, no numbness. HEMATOLOGICAL: Denies any bleeding or petechiae. GENITOURINARY: Denies any burning micturition, frequency, or urgency. MUSCULOSKELETAL/RHEUMATOLOGICAL: Denies any joint pain, swelling, or any muscle pain. ENDOCRINE: Denies any polyuria or polydipsia. Past Medical History Past Medical History: Seizure Disorder Additional Past Medical History / Comment(s): PT has hx of seizures when detoxing from ETOH. History of alcohol induced pancreatitis History of Any Multi-Drug Resistant Organisms: None Reported Past Surgical History: No Surgical Hx Reported Additional Past Surgical History / Comment(s): Had nerve cyst removed from wrist when young. Past Psychological History: Anxiety, Depression Smoking Status: Current every day smoker Past Alcohol Use History: Abuse, Daily, Heavy Past Drug Use History: Marijuana - Past Family History Mother Family Medical History: Hyperlipidemia Medications and Allergies Home Medications Medication Instructions Recorded Confirmed Type Thiamine [Vitamin B-1] 100 mg PO BID-W/MEALS #60 tab 08/22/21 10/04/21 Rx FLUoxetine HCL [PROzac] 10 mg PO DAILY 09/08/21 10/04/21 History Multivitamins, Thera [Multivitamin 1 tab PO DAILY 09/08/21 10/04/21 History (formulary)] amLODIPine [Norvasc] 10 mg PO DAILY 09/08/21 10/04/21 History busPIRone HCl [Buspar] 10 mg PO TID 09/08/21 10/04/21 History hydroCHLOROthiazide [Hydrodiuril] 25 mg PO DAILY 09/08/21 10/04/21 History Allergies Allergy/AdvReac Type Severity Reaction Status Date / Time No Known Allergies Allergy Verified 10/04/21 18:23 Physical Exam Vitals: Vital Signs Temp Pulse Pulse Resp BP BP Pulse Ox 10/05/21 08:00 98.4 F 82 16 148/67 94 L 10/05/21 06:00 97.6 F 86 16 121/83 95 10/05/21 01:00 90 15 122/76 10/04/21 18:21 98.0 F 85 20 138/84 98 Intake and Output 10/04/21 10/05/21 10/05/21 22:59 06:59 14:59 Other: Voiding Method Toilet Weight 53.07 kg GENERAL: The patient is alert and oriented x3, not in any acute distress. Well developed, well nourished. HEENT: Pupils are round and equally reacting to light. EOMI. No scleral icterus. No conjunctival pallor. Normocephalic, atraumatic. No pharyngeal erythema. No thyromegaly. CARDIOVASCULAR: S1 and S2 present. No murmurs, rubs, or gallops. PULMONARY: Chest is clear to auscultation, no wheezing or crackles. ABDOMEN: Soft, nontender, nondistended, normoactive bowel sounds. No palpable organomegaly. MUSCULOSKELETAL: No joint swelling or deformity. EXTREMITIES: No cyanosis, clubbing, or pedal edema. NEUROLOGICAL: Gross neurological examination did not reveal any focal deficits. SKIN: No rashes. no petechiae. Results CBC & Chem 7: 10/05/21 05:35 10/05/21 05:35 Labs: Abnormal Lab Results - Last 24 Hours (Table) 10/04/21 10/05/21 Range/Units 22:23 05:35 Sodium 146 H (137-145) mmol/L Chloride 110 H (98-107) mmol/L Carbon Dioxide 21 L (22-30) mmol/L Albumin 5.1 H (3.5-5.0) g/dL Assessment and Plan Assessment: Alcohol abuse Nicotine dependence Depression Hypertension History of seizure being not on medication, most likely history of alcohol withdrawal seizure Substance abuse Plan: This is a pleasant 26 years old female who presents with alcohol abuse, abdominal pain Continue with CIWA protocol, and thiamine Monitor electrolytes and replace accordingly Follow-up with psych consult Continue with IV fluid Labs and medication were reviewed.. Continue same treatment. Continue with symptomatic treatment. Resume home medication. Monitor lytes and vitals. DVT and GI prophylaxis. Further recommendations as per clinical course of the patient DVT prophylaxis: Subcutaneous heparin GI Prophylaxis: Pepcid PT/OT: Pending Prognosis is guarded
[2021-10-05 13:46] VITALS: BMI 18.3
[2021-10-05] MEDS ORDERED: NALTREXONE HCL 50 MG TAB PO SCH (14:30)
[2021-10-05] MEDS ORDERED: busPIRone HCl 5 MG TAB PO PRN (14:30)
[2021-10-05 14:31] LABS: Appearance,Urine Cloudy (Clear); Bacteria,Urine Rare /hpf; Bilirubin,Urine Negative (Negative); Blood,Urine Small (Negative); Color,Urine Yellow; Glucose,Urine (UA) Negative (Negative); Ketones,Urine 1+ (Negative); Leukocyte Esterase,Urine Small (Negative); Mucus,Urine Few /hpf; Nitrite,Urine Negative (Negative); PH, Urine 5.5 (5.0-8.0); Protein,Urine Trace (Negative); RBC,Urine 21 /hpf (0-5); Specific Gravity,Urine 1.017 (1.001-1.035); Squamous Epithelial Cell,Urine 5 /hpf (0-4); Urobilinogen,Urine <2.0 mg/dL (<2.0); WBC,Urine 9 /hpf (0-5)
--- NOTE | 2021-10-05 14:39 | P.CN ---
Psychiatric Consult - . Consult date: 10/05/21 Consult:: 10/05/21 13:21 IDENTIFYING DATA: This patient is a 26-year-old female, currently living with her in an apartment. Unemployed. Has no kids. REASON FOR REFERRAL: Psychiatry was consulted for alcohol and depression HISTORY OF PRESENT ILLNESS: The patient presented to the hospital yesterday with complaints of alcohol intoxication and also history of withdrawal seizures. Apparently patient last drink was before coming into the hospital. Patient blood alcohol level was 195. Patient is at several admissions in the past for alcohol-related problems. Archivist Military History spoke with patient's nurse will patient's care prior to seeing the patient at the bedside. Patient was with her and was agreeable to speak alone with sports writer today. She states that she came to the hospital for "detox" and states that she is scared of going through withdrawals and having a withdrawal seizure. She states that she has no history of DTs or hallucinations and withdrawal in the past. She states that she drinks approximately 1 pint of vodka a day and she has been doing this for the last 4 years. She claims that her last drink was before coming in the hospital. She states that her last her longest sobriety has been 6 months. She states that she used to go to AA meetings in the past however has not recently. She claims that alcohol has caused relationship issues for her and also a DUI in 2019. She states that she does have mild depression and also anxiety. She claims that she has been on Prozac which has been helping however has been off of it for 2 weeks now due to not being able to get it refilled. She states that she is not having any significant withdrawal symptoms at this time. Claims that her sleep and appetite are fair . At this time patient denies any suicidal or homical ideations, intent or plan. Patient denies any auditory, visual hallucinations and denies any paranoia or delusions. Patients admits to using alcohol as noted above, cigarettes daily, cannabis occasionally. PAST PSYCHIATRIC HISTORY: Patient has a a history of anxiety and depression and also alcohol use. Prozac and BuSpar prescribed by her PCP. Patient denies any previous psychiatric hospitalizations. Patient denies any psychiatric outpatient follow-up. Patient denies any history of suicide attempts in the past. Past Medical History: No Reported History, Seizure Disorder Additional Past Medical History / Comment(s): PT has hx of seizures when detoxing from ETOH ALLERGIES: as per EMR. CHEMICAL DEPENDENCY HISTORY: as per HPI. FAMILY PSYCHIATRIC/SUBSTANCE USE HISTORY: denies SOCIAL HISTORY: Patient was born and raised in [facility]. She states that she completed high school. 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 She states that she has been in long-term once in 2019 for a DUI. She currently lives with her in an apartment. Has no kids is currently unemployed. MENTAL STATUS EXAM: General Appearance: Patient appears to have multiple tattoos, shorter hair, be stated age is alert, pleasant, and attempts to be cooperative. Patient appears to have fair hygiene and grooming wearing hospital gown with fair eye contact. Behavior: Patient is calmly lying in bed without any agitated behavior. No tremors. Speech: Patient's speech is fluent and nonpressured. Mood/Affect: Patient reports their mood is "mildly depressed", affect is congruent and constricted Suicidality/Homicidality: Patient denies having any suicidal or homicidal ideation intent or plan. Perceptions: Patient denies any visual hallucinations and denies any auditory hallucinations Though content/process: There is no evidence of any delusional thought content and thought process is linear and goal-directed. Memory and concentration: AOX3, grossly intact for the purposes of this session. Can spell "WORLD" backwards Judgment and insight: poor IMPRESSIONS: Alcohol use disorder, severe dependence Major depressive disorder Anxiety disorder unspecified Cannabis use disorder mild Nicotine dependence PLAN: -At this time patient DOES NOT meet criteria for inpatient psychiatric admission. -Would recommend the following medication changes/additions: Increase Prozac to 20 mg daily for mood/anxiety, increase BuSpar to 15 mg 3 times a day when necessary for anxiety. Spoke with patient about starting naltrexone and patient is agreeable to this. This can be started 50 mg daily once patient is off of morphine or any other opiates due to interaction. -CIWA protocol with PRN Ativan for alcohol withdrawal. Continue to monitor vital signs. -hoe worker to provide patient with outpatient mental health/psychiatry resources for appropriate follow up upon discharge -Archivist Military History spoke with patient about substance abuse and the harmful effects on medical and mental health, patient verbally understood and agreed. -hoe worker to provide patient substance use treatment resources including AA/NA meetings in the community. -hoe worker to provide patient with access line number to call for inpatient substance rehab -Communicated plan to patient's nurse -Psychiatry will sign off at this time -Please contact with any questions.
[2021-10-05 14:55] LABS: Amphetamine Screen,Urine Not Detected (NotDetected); Barbiturate Screen,Urine Not Detected (NotDetected); Benzodiazepines Screen,Urine Detected (NotDetected); Cocaine Screen,Urine Not Detected (NotDetected); Methadone Screen, Urine Not Detected (NotDetected); Opiate Screen,Urine Not Detected (NotDetected); Oxycodone Screen, Urine Not Detected (NotDetected); Phencyclidine Screen,Urine Not Detected (NotDetected); Tricyclic Antidepressant,Urine Not Detected (NotDetected); Urn Cannabinoid Scrn Detected (NotDetected)
[2021-10-05] MEDS: FLUoxetine HCL 20 MG CAP PO SCH (14:55)
[2021-10-05] MEDS ORDERED: LORazepam 1 MG/0.5 ML VIAL IV PRN ×3 (17:15→17:27)
[2021-10-05] MEDS ORDERED: LORazepam 2 MG/ML INJ IV PRN (17:16)
[2021-10-06] MEDS: FLUoxetine HCL 20 MG CAP PO SCH (07:26)
[2021-10-06] MEDS: THIAMINE 100 MG TAB PO SCH (07:26)
[2021-10-06 11:59] VITALS: BP 163/87; PULSE 48; RESP 15; TEMP 98.4
--- NOTE | 2021-10-06 23:57 | P.DS ---
Providers Date of admission: 10/04/21 22:33 Attending physician: Guillermo Kahn Consults: 10/04/21 22:32 Consult Physician Routine Consulting Provider: Jose [place] Consult Reason/Comments: etoh,depression Do you want consulting provider notified?: Yes Primary care physician: Shannon Damon Hospital Course: Diagnoses Alcohol abuse, patient admitted for alcohol detox At her request Alcohol withdrawal secondary to above Substance abuse, including marijuana Nicotine dependence Depression Hypertension History of seizure being not on medication, most likely history of alcohol withdrawal seizure Hospital course: This is a pleasant 26 years old female with past medical history of depression, hypertension, history of seizure being not on medication. 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 She was concerned about some mild tenderness and abdominal pain on admission which is resolved now . CIWA score on discharge was 2-4, blood pressure is stable, and patient is asymptomatic. Today once I walked into the room patient was sitting up in bed and immediately she told me she wants to go home. Bedside nurse Dulce confirms patient has no needs. Patient fully awake and oriented, she denies any symptoms for me. She denies chest pain or dyspnea. No dizziness. No headache. No syncope. No weakness or numbness. No blurred vision or slurred speech. Her abdominal pain resolved, she tolerates diet well, no vomiting, no diarrhea, she has normal bowel movements. Her urinalysis was abnormal but patient denies any specific symptoms, no dysuria or urgency or change in frequency therefore no need for antibiotic as this could be only asymptomatic bacteriuria. Psychiatrist already increase the Prozac 10 mg up to 20 mg a informed and she agrees. Patient was eager to be discharged home today. She wants to follow up outpatient with Dr. serrano with because she was instructed, patient's want staff to help her with appointment Problems and management plan were discussed with the patient and he verbalized understanding and acceptance Patient was found stable and can be discharged home however he needs follow-up as an outpatient. Patient was instructed to follow up with PCP within one week and patient agrees Physical exam Gen: patient is a AAOx3, no distress CVS: S1-S2, RRR, no murmur Lungs: B/L CTA, no wheezing Abdomen: soft, no distention, no tenderness, positive bowel sounds Extremity: no leg edema or induration Gait: Normal Time spent more than 35 minutes Patient Condition at Discharge: Good Plan - Discharge Summary Discharge Rx Participant: No New Discharge Prescriptions: New FLUoxetine HCL [PROzac] 20 mg PO DAILY #30 cap Continue hydroCHLOROthiazide [Hydrodiuril] 25 mg PO DAILY busPIRone HCl [Buspar] 10 mg PO TID Multivitamins, Thera [Multivitamin (formulary)] 1 tab PO DAILY Thiamine [Vitamin B-1] 100 mg PO BID-W/MEALS #60 tab amLODIPine [Norvasc] 10 mg PO DAILY Discontinued FLUoxetine HCL [PROzac] 10 mg PO DAILY Discharge Medication List Thiamine [Vitamin B-1] 100 mg PO BID-W/MEALS #60 tab 08/22/21 [Rx] Multivitamins, Thera [Multivitamin (formulary)] 1 tab PO DAILY 09/08/21 [H istory] amLODIPine [Norvasc] 10 mg PO DAILY 09/08/21 [History] busPIRone HCl [Buspar] 10 mg PO TID 09/08/21 [History] hydroCHLOROthiazide [Hydrodiuril] 25 mg PO DAILY 09/08/21 [History] FLUoxetine HCL [PROzac] 20 mg PO DAILY #30 cap 10/06/21 [Rx] Follow up Appointment(s)/Referral(s): Shannon Damon MD [Primary Care Provider] - 10/11/21 3:00 pm (have patient bring discharge papers to visit) Patient Instructions/Handouts: Fluoxetine (By mouth), Dehydration (DC), Abuse of Alcohol (DC), Anxiety (ED) Discharge/Stand Alone Forms: AA Meetings [place], [facility], Outpatient Counseling, In Substance Abuse Facilities Discharge Disposition: HOME SELF-CARE
== END 2021-10-06 12:30 | disposition home or self-care (01) ==
LOC: EC 18:02 → 5NMEDONC 22:33 → INTOOBSV 22:33 → 5NMEDONC 10-05 05:41
PROVIDERS: ADMIT Hospitalist; ATTEND Hospitalist
DX: F10.229 Alcohol dependence with intoxication, unspecified (principal); F10.239 Alcohol dependence with withdrawal, unspecified; E86.0 Dehydration; G40.909 Epilepsy, unspecified, not intractable, without status epilepticus; I10 Essential (primary) hypertension; F32.9 Major depressive disorder, single episode, unspecified; F17.210 Nicotine dependence, cigarettes, uncomplicated; F12.10 Cannabis abuse, uncomplicated; F41.9 Anxiety disorder, unspecified; Z79.899 Other long term (current) drug therapy; Z32.02 Encounter for pregnancy test, result negative; Z83.438 Family history of other disorder of lipoprotein metabolism and other lipidemia; Z56.0 Unemployment, unspecified; Y90.6 Blood alcohol level of 120-199 mg/100 ml
CPT/HCPCS: 96361 ×3; 96372; 96374; 96375; 99284; 36415; 80053 ×2; 83690 ×2; 83735 ×2; 84100 ×2; 85025 ×2; 81001; 84703; 80306; G0378 ×3; G0480; J2060; J0780; J3411; 80320

== ENCOUNTER 2022-02-06 09:20 | Emergency (ER) | payer OTHER ==
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
[2022-02-06 10:44] LABS: Basophils # (A) 0.1 k/uL (0-0.2); Basophils % (A) 1 %; Eosinophils # (A) 0.1 k/uL (0-0.7); Eosinophils % (A) 2 %; HCT 45.9 % (34.0-46.0); HGB 16.1 gm/dL (11.4-16.0); Lymphocytes # (A) 2.6 k/uL (1.0-4.8); Lymphocytes % (A) 32 %; MCH 32.6 pg (25.0-35.0); MCHC 35.1 g/dL (31.0-37.0); Mean Platelet Volume 7.8; Monocytes # (A) 0.3 k/uL (0-1.0); Monocytes % (A) 3 %; Neutrophils % (A) 61 %; Platelet Count 265 k/uL (150-450); RBC 4.93 m/uL (3.80-5.40); RDW 12.2 % (11.5-15.5); WBC 8.2 k/uL (3.8-10.6)
[2022-02-06 10:53] LABS: Appearance,Urine Clear (Clear); Bilirubin,Urine Negative (Negative); Blood,Urine Negative (Negative); Color,Urine Colorless; Glucose,Urine (UA) Negative (Negative); Ketones,Urine Negative (Negative); Leukocyte Esterase,Urine Negative (Negative); Nitrite,Urine Negative (Negative); PH, Urine 6.5 (5.0-8.0); Protein,Urine Negative (Negative); Specific Gravity,Urine 1.003 (1.001-1.035); Urobilinogen,Urine <2.0 mg/dL (<2.0)
[2022-02-06 10:56] LABS: ALT 18 U/L (4-34); AST 27 U/L (14-36); African American GFR (CKD) >90 (>60 ml/min/1.73 sqM); Albumin 4.9 g/dL (3.5-5.0); Alkaline Phosphatase 84 U/L (38-126); Anion Gap 10 mmol/L; Blood Urea Nitrogen 9 mg/dL (7-17); Calcium 9.3 mg/dL (8.4-10.2); Carbon Dioxide 28 mmol/L (22-30); Chloride 107 mmol/L (98-107); Glucose 112 mg/dL (74-99); Lipase 69 U/L (23-300); Magnesium 2.1 mg/dL (1.6-2.3); Non-African American GFR(CKD) >90 (>60 ml/min/1.73 sqM); Potassium 4.1 mmol/L (3.5-5.1); Sodium 145 mmol/L (137-145); Total Bilirubin 1.6 mg/dL (0.2-1.3); Total Protein 7.9 g/dL (6.3-8.2)
[2022-02-06 10:58] LABS: Alcohol 247 mg/dL
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
[2022-02-06 12:16] VITALS: BP 135/86; PULSE 62; RESP 16; TEMP 98.1
== END 2022-02-06 12:15 | disposition home or self-care (01) ==
LOC: EC 09:20
DX: F10.239 Alcohol dependence with withdrawal, unspecified (principal); G40.909 Epilepsy, unspecified, not intractable, without status epilepticus; F41.9 Anxiety disorder, unspecified; F32.A Depression, unspecified; F17.200 Nicotine dependence, unspecified, uncomplicated; V49.40XA Driver injured in collision with unspecified motor vehicles in traffic accident, initial encounter
CPT/HCPCS: 36415; 70450; 71046; 72125; 72170; 80053; 80320; 81003; 83690; 83735; 85025; 99285